=== PATIENT | female | born 1950 | race Caucasian/White ===

== ENCOUNTER 2016-11-25 18:25 | Emergency (ER) | payer MEDICARE, OTHER ==
[2016-11-25 18:36] VITALS: RESP 20
--- NOTE | 2016-11-25 19:00 | ED ---
Female Urogenital HPI - General Chief complaint: Vaginal Bleeding Stated complaint: vaginal bleeding Time Seen by Provider: 11/25/16 18:42 Source: patient, RN notes reviewed Mode of arrival: ambulatory Limitations: no limitations - History of Present Illness Initial comments: 66-year-old female presents emergency Department with chief complaint of vaginal bleeding. Patient states that she was admitted to the hospital on 11/11 for chest pain, vaginal bleeding. Patient was evaluated by Dr. Joseph OB/ RECREATIONAL THERAPY AIDE at that time. They felt that her bleeding was secondary to her use of Coumadin and a thickened endometrial lining. Patient states that she was placed on Provera 10 mg daily. She states that she is still taking the medication. Patient states that she has had no bleeding since the first of the year though she states she restarted approximately 2 hours ago. She states she has not gone through one pad yet. Patient denies any chest pain, headache, dizziness or lightheadedness. Dysuria hematuria. She states she does have some abdominal cramping. Patient states that her primary care physician did set up appointment with an REAL PROPERTY EVALUATOR and [facility]. - Related Data Home Medications Medication Instructions Recorded Confirmed Cholecalciferol [Vitamin D3] 2,000 unit PO QAM 09/11/15 11/25/16 Cyanocobalamin [Vitamin B-12] 3,000 mcg PO QAM 09/11/15 11/25/16 Digoxin [Lanoxin] 125 mcg PO QAM 09/11/15 11/25/16 Enalapril [Vasotec] 10 mg PO QAM 09/11/15 11/25/16 Loratadine [Claritin] 10 mg PO DAILY PRN 09/11/15 11/25/16 Simvastatin [Zocor] 20 mg PO HS 09/11/15 11/25/16 Warfarin [Coumadin] 5 mg PO HS 09/11/15 11/25/16 Albuterol Inhaler [Ventolin Hfa 2 puff INHALATION RT-Q4H PRN 11/11/16 11/25/16 Inhaler] Aspirin EC [Ecotrin Low Dose] 81 mg PO QAM 11/11/16 11/25/16 Hydrochlorothiazide 25 mg PO QAM 11/11/16 11/25/16 Lansoprazole [Prevacid] 30 mg PO QAM 11/11/16 11/25/16 Metoprolol Tartrate [Lopressor] 100 mg PO BID 11/11/16 11/25/16 Previous Rx's Medication Instructions Recorded Levofloxacin [Levaquin] 500 mg PO HS tab 11/12/16 medroxyPROGESTERone [Provera] 10 mg PO DAILY tab 11/12/16 Allergies Allergy/AdvReac Type Severity Reaction Status Date / Time latex Allergy Unknown Verified 11/25/16 18:40 shellfish derived [Shellfish] Allergy Unknown Verified 11/25/16 18:40 Review of Systems ROS Statement: Those systems with pertinent positive or pertinent negative responses have been documented in the HPI. ROS Other: All systems not noted in ROS Statement are negative. Past Medical History Past Medical History: Atrial Fibrillation, Coronary Artery Disease (CAD), GERD/ Reflux, Hyperlipidemia, Hypertension, Myocardial Infarction ([place]), Osteoarthritis (OA) Additional Past Medical History / Comment(s): gastric ulcers in past Last Myocardial Infarction Date:: 1998 History of Any Multi-Drug Resistant Organisms: None Reported Past Surgical History: Heart Catheterization With Stent Past Anesthesia/Blood Transfusion Reactions: No Reported Reaction Date of Last Stent Placement:: 1998 Past Psychological History: No Psychological Hx Reported Smoking Status: Never smoker Past Alcohol Use History: None Reported Past Drug Use History: None Reported - Past Family History Sister(s) Family Medical History: Cancer General Exam General appearance: alert, in no apparent distress Head exam: Present: atraumatic, normocephalic, normal inspection Respiratory exam: Present: normal lung sounds bilaterally. Absent: respiratory distress, wheezes, rales, rhonchi, stridor Cardiovascular Exam: Present: regular rate, normal rhythm, normal heart sounds. Absent: systolic murmur, diastolic murmur, rubs, gallop, clicks GI/Abdominal exam: Present: soft, normal bowel sounds. Absent: distended, tenderness, guarding, rebound, rigid Back exam: Absent: CVA tenderness (R), CVA tenderness (L) Neurological exam: Present: alert, oriented X3, CN II-XII intact Skin exam: Present: warm, dry, intact, normal color. Absent: rash Course Vital Signs 11/25/16 18:32 Temperature 98.5 F Pulse Rate 110 H Respiratory 20 Rate Blood Pressure 149/83 O2 Sat by Pulse 95 Oximetry Medical Decision Making - Medical Decision Making 66-year-old female presented for vaginal bleeding. Patient has had this in the past and has been evaluated by Dr. Joseph in the hospital. Patient is on Provera at this time. Patient's bleeding is very minimal. Patient will be continuing her medication and she'll be followed up with her REAL PROPERTY EVALUATOR at her scheduled appointment with Jonas Kenney. Patient was given return parameters. Patient agrees to plan. - Lab Data Result diagrams: 11/25/16 19:06 11/25/16 19:06 Lab Results 11/25/16 11/25/16 11/25/16 Range/Units 19:06 19:06 19:06 WBC 13.0 H (3.8-10.6) k/uL RBC 4.38 (3.80-5.40) m/uL Hgb 14.7 (11.4-16.0) gm/dL Hct 43.4 (34.0-46.0) % MCV 99.1 (80.0-100.0) fL MCH 33.5 (25.0-35.0) pg MCHC 33.8 (31.0-37.0) g/dL RDW 14.4 (11.5-15.5) % Plt Count 260 (150-450) k/uL Neutrophils % 76 % Lymphocytes % 13 % Monocytes % 7 % Eosinophils % 2 % Basophils % 1 % Neutrophils # 9.9 H (1.3-7.7) k/uL Lymphocytes # 1.6 (1.0-4.8) k/uL Monocytes # 0.9 (0-1.0) k/uL Eosinophils # 0.3 (0-0.7) k/uL Basophils # 0.1 (0-0.2) k/uL PT 18.7 H (9.0-12.0) sec INR 1.9 (<1.1) APTT 26.5 (22.0-30.0) sec Sodium 143 (137-145) mmol/L Potassium 3.9 (3.5-5.1) mmol/L Chloride 104 (98-107) mmol/L Carbon Dioxide 24 (22-30) mmol/L Anion Gap 15 mmol/L BUN 19 H (7-17) mg/dL Creatinine 0.91 (0.52-1.04) mg/dL Est GFR (MDRD) Af Amer >60 (>60 ml/min/1.73 sqM) Est GFR (MDRD) Non-Af >60 (>60 ml/min/1.73 sqM) Glucose 98 (74-99) mg/dL Calcium 10.5 H (8.4-10.2) mg/dL Total Bilirubin 0.6 (0.2-1.3) mg/dL AST 29 (14-36) U/L ALT 42 (9-52) U/L Alkaline Phosphatase 98 (38-126) U/L Total Protein 7.4 (6.3-8.2) g/dL Albumin 4.0 (3.5-5.0) g/dL Urine Color Urine Appearance (Clear) Urine pH (5.0-8.0) Ur Specific [place] (1.001-1.035) Urine Protein (Negative) Urine Glucose (UA) (Negative) Urine Ketones (Negative) Urine Blood (Negative) Urine Nitrate (Negative) Urine Bilirubin (Negative) Urine Urobilinogen (<2.0) mg/dL Ur Leukocyte Esterase (Negative) Urine RBC (0-5) /hpf Urine WBC (0-5) /hpf Ur Squamous Epith Cells (0-4) /hpf Urine Bacteria (None) /hpf Urine Yeast (Budding) (None) /hpf 11/25/16 Range/Units 19:06 WBC (3.8-10.6) k/uL RBC (3.80-5.40) m/uL Hgb (11.4-16.0) gm/dL Hct (34.0-46.0) % MCV (80.0-100.0) fL MCH (25.0-35.0) pg MCHC (31.0-37.0) g/dL RDW (11.5-15.5) % Plt Count (150-450) k/uL Neutrophils % % Lymphocytes % % Monocytes % % Eosinophils % % Basophils % % Neutrophils # (1.3-7.7) k/uL Lymphocytes # (1.0-4.8) k/uL Monocytes # (0-1.0) k/uL Eosinophils # (0-0.7) k/uL Basophils # (0-0.2) k/uL PT (9.0-12.0) sec INR (<1.1) APTT (22.0-30.0) sec Sodium (137-145) mmol/L Potassium (3.5-5.1) mmol/L Chloride (98-107) mmol/L Carbon Dioxide (22-30) mmol/L Anion Gap mmol/L BUN (7-17) mg/dL Creatinine (0.52-1.04) mg/dL Est GFR (MDRD) Af Amer (>60 ml/min/1.73 sqM) Est GFR (MDRD) Non-Af (>60 ml/min/1.73 sqM) Glucose (74-99) mg/dL Calcium (8.4-10.2) mg/dL Total Bilirubin (0.2-1.3) mg/dL AST (14-36) U/L ALT (9-52) U/L Alkaline Phosphatase (38-126) U/L Total Protein (6.3-8.2) g/dL Albumin (3.5-5.0) g/dL Urine Color Yellow Urine Appearance Clear (Clear) Urine pH 5.5 (5.0-8.0) Ur Specific [place] 1.004 (1.001-1.035) Urine Protein Trace H (Negative) Urine Glucose (UA) Negative (Negative) Urine Ketones Negative (Negative) Urine Blood Large H (Negative) Urine Nitrate Negative (Negative) Urine Bilirubin Negative (Negative) Urine Urobilinogen <2.0 (<2.0) mg/dL Ur Leukocyte Esterase Small H (Negative) Urine RBC 134 H (0-5) /hpf Urine WBC 12 H (0-5) /hpf Ur Squamous Epith Cells 1 (0-4) /hpf Urine Bacteria Occasional H (None) /hpf Urine Yeast (Budding) Rare H (None) /hpf Disposition Clinical Impression: Dysfunctional uterine bleeding Disposition: HOME SELF-CARE Condition: Stable Instructions: Dysfunctional Uterine Bleeding (ED) Additional Instructions: Follow-up with your REAL PROPERTY EVALUATOR as discussed.Please return to the Emergency Department if symptoms worsen or any other concerns. Time of Disposition: 20:22
[2016-11-25 19:26] LABS: Basophils # (A) 0.1 k/uL (0-0.2); Basophils % (A) 1 %; CH 35.1; CHCM 35.7; Eosinophils # (A) 0.3 k/uL (0-0.7); Eosinophils % (A) 2 %; HCT 43.4 % (34.0-46.0); HDW 3.11; HGB 14.7 gm/dL (11.4-16.0); Luc # (Auto) 0.29; Luc % (Auto) 2; Lymphocytes # (A) 1.6 k/uL (1.0-4.8); Lymphocytes % (A) 13 %; MCH 33.5 pg (25.0-35.0); MCHC 33.8 g/dL (31.0-37.0); MCV 99.1 fL (80.0-100.0); Mean Platelet Volume 8.8; Monocytes # (A) 0.9 k/uL (0-1.0); Monocytes % (A) 7 %; Neutrophils # (A) 9.9 k/uL (1.3-7.7); Neutrophils % (A) 76 %; RBC 4.38 m/uL (3.80-5.40); RDW 14.4 % (11.5-15.5); WBC (Perox) 12.55
[2016-11-25 19:32] LABS: ALT 42 U/L (9-52); AST 29 U/L (14-36); Alkaline Phosphatase 98 U/L (38-126); Anion Gap 15 mmol/L; Blood Urea Nitrogen 19 mg/dL (7-17); Calcium 10.5 mg/dL (8.4-10.2); Carbon Dioxide 24 mmol/L (22-30); Chloride 104 mmol/L (98-107); Glucose 98 mg/dL (74-99); Non-African American GFR(MDRD) >60 (>60 ml/min/1.73 sqM); Potassium 3.9 mmol/L (3.5-5.1); Sodium 143 mmol/L (137-145); Total Bilirubin 0.6 mg/dL (0.2-1.3); Total Protein 7.4 g/dL (6.3-8.2)
[2016-11-25 19:35] LABS: INR 1.9 (<1.1); Partial Thromboplastin Time 26.5 sec (22.0-30.0); Prothrombin Time 18.7 sec (9.0-12.0)
[2016-11-25 19:39] LABS: Appearance,Urine Clear (Clear); Bacteria,Urine Occasional /hpf; Bilirubin,Urine Negative (Negative); Glucose,Urine (UA) Negative (Negative); Ketones,Urine Negative (Negative); Leukocyte Esterase,Urine Small (Negative); Nitrite,Urine Negative (Negative); PH, Urine 5.5 (5.0-8.0); Particle Count 4584; Protein,Urine Trace (Negative); RBC,Urine 134 /hpf (0-5); Specific Gravity,Urine 1.004 (1.001-1.035); Squamous Epithelial Cell,Urine 1 /hpf (0-4); UA Billing (MACRO vs. MICRO) MICRO; Urobilinogen,Urine <2.0 mg/dL (<2.0); WBC,Urine 12 /hpf (0-5)
[2016-11-25 20:35] VITALS: BP 150/60; PULSE 76; TEMP 97
== END 2016-11-25 20:35 | disposition home or self-care (01) ==
LOC: EC 18:25
DX: N93.8 Other specified abnormal uterine and vaginal bleeding (principal); I48.91 Unspecified atrial fibrillation; K21.9 Gastro-esophageal reflux disease without esophagitis; I10 Essential (primary) hypertension; M19.90 Unspecified osteoarthritis, unspecified site; E78.5 Hyperlipidemia, unspecified; I25.2 Old myocardial infarction; Z95.5 Presence of coronary angioplasty implant and graft; Z79.890 Hormone replacement therapy; Z79.899 Other long term (current) drug therapy; Z79.01 Long term (current) use of anticoagulants; Z79.82 Long term (current) use of aspirin; Z91.040 Latex allergy status
CPT/HCPCS: 36415; 80053; 81001; 85025; 85610; 85730; 87086; 99284

== ENCOUNTER → 2017-01-10 | Outpatient (CLI) | payer MEDICARE, OTHER ==
[2017-01-10 14:48] LABS: Calcium 9.3 mg/dL (8.4-10.2); Potassium 4.3 mmol/L (3.5-5.1); Total Bilirubin 0.8 mg/dL (0.2-1.3); Total Protein 7.2 g/dL (6.3-8.2)
== END | disposition home or self-care (01) ==
LOC: LABWHC1 14:13
PROVIDERS: ATTEND Family Medicine
DX: I10 Essential (primary) hypertension (principal)
CPT/HCPCS: 36415; 80053

== ENCOUNTER 2022-03-16 10:27 | Day surgery (SDC) | payer MEDICARE ==
[2022-03-14 16:11] VITALS: BMI 56.5
[~2022-03-16 10:27] MED LIST: ALPRAZolam 0.25 MG TAB PO PRN; ALPRAZolam 0.5 MG TAB PO PRN; ASPIRIN 325 MG TAB PO STA; NITROGLYCERIN SL TABS 0.4 MG TAB SUBLINGUAL PRN; SODIUM CHLORIDE 0.9% 1,000 ML in EMPTY BAG 1 BAG IV SCH
[2022-03-16 10:58] VITALS: TEMP 97.9
[2022-03-16 11:02] LABS: Anisocytosis Slight; Basophils # (A) 0.1 k/uL (0-0.2); Basophils % (A) 1 %; Eosinophils # (A) 0.3 k/uL (0-0.7); Eosinophils % (A) 4 %; HCT 40.2 % (34.0-46.0); HGB 12.9 gm/dL (11.4-16.0); Hypochromasia Slight; Lymphocytes # (A) 1.1 k/uL (1.0-4.8); Lymphocytes % (A) 14 %; MCH 34.4 pg (25.0-35.0); MCHC 32.2 g/dL (31.0-37.0); MCV 106.9 fL (80.0-100.0); Macrocytosis Marked; Mean Platelet Volume 8.2; Monocytes # (A) 0.5 k/uL (0-1.0); Monocytes % (A) 6 %; Neutrophils # (A) 5.8 k/uL (1.3-7.7); Neutrophils % (A) 74 %; Platelet Count 280 k/uL (150-450); RBC 3.76 m/uL (3.80-5.40); RDW 16.4 % (11.5-15.5); WBC 7.8 k/uL (3.8-10.6)
[2022-03-16 11:08] LABS: INR 2.6 (<1.2)
[2022-03-16] MEDS ORDERED: fentaNYL (PF) 50 MCG/ML 2 ML AMP ONE (11:19)
[2022-03-16] MEDS ORDERED: IV FLUID CONTINUATION 1,000 ML IV ONE (11:20)
[2022-03-16] MEDS ORDERED: MIDAZOLAM 2 MG/2 ML VIAL IV ONE (11:50)
[2022-03-16] MEDS ORDERED: fentaNYL (PF) 50 MCG/ML 2 ML AMP IV ONE (11:50)
[2022-03-16] MEDS ORDERED: BENZOCAINE SPRAY 1 CAN MUCOUS MEM ONE (11:50)
[2022-03-16 12:00] VITALS: RESP 16
[2022-03-16] MEDS ORDERED: ALBUTEROL INHALATION PRN (12:07)
--- NOTE | 2022-03-16 12:12 | P.PCN ---
Date of Procedure: 03/16/22 Description of Procedure: Indication: Evaluation of aortic valve Procedure Description: After explaining the procedure to the patient, it's risk and complications, blood pressure, heart rate and O2 saturation were monitored. The throat was sprayed with Cetacaine. Patient received 3 mg intravenous Versed, 50 mcg intravenous fentanyl. The probe was introduced into the esophagus without difficulty. Images were obtained. Following that, the probe was removed. There was no immediate complication. Findings: Left atrial size is mildly dilated, left atrial appendage is normal. Left ventricle size and systolic function are normal. The mitral valve revealed mild fibrocalcific changes, tricuspid valve is normal. The aortic valve is a tricuspid valve with severe calcifications with reduced opening, aortic valve by planimetry is 0.8 cm. Ascending thoracic aorta revealed mild atherosclerotic changes. No pericardial effusion was noted. Contrast bubble study revealed no evidence of shunting across the intra-atrial septum was Valsalva maneuver. Doppler: Pulse wave and color Doppler were obtained and revealed moderate aortic regurgitation with [id number] mitral and tricuspid regurgitation, the estimated right ventricle systolic pressure was 45 mmHg. The peak gradient across the aortic valve was 62 mercury with a mean of 44 mmHg consistent with severe aortic stenosis. There was no shunting across the intra-atrial septum. Conclusion: 1. Mildly dilated left atrium 2. Normal left ventricle size and systolic function 3. Severe aortic stenosis with moderate aortic regurgitation 4. Mild to moderate mitral and tricuspid regurgitation with mild pulmonary hypertension 5. No evidence of shunting across the intra-atrial septum.
[2022-03-16] MEDS ORDERED: SODIUM CHLORIDE 0.9% 1,000 ML IV SCH (12:15)
[2022-03-16 13:46] VITALS: BP 112/61; PULSE 78
[2022-03-16] MEDS ORDERED: NON FORMULARY DRUG (Metoprolol Tartrate [Lopressor] 100 MG Tablet) PO SCH (21:00)
[2022-03-16] MEDS ORDERED: ATORVASTATIN 20 MG TAB PO SCH (21:00)
[2022-03-17] MEDS ORDERED: NON FORMULARY DRUG (Aspirin Ec 81 MG Tablet.Dr) PO SCH (09:00)
[2022-03-17] MEDS ORDERED: hydroCHLOROthiazide 25 MG TAB PO SCH (09:00)
[2022-03-17] MEDS ORDERED: NON FORMULARY DRUG (Enalapril 10 MG Tab) PO SCH (09:00)
== END 2022-03-16 13:40 | disposition home or self-care (01) ==
LOC: CATHCVL 10:27
PROVIDERS: ATTEND Internal Medicine Interventional Cardiology
DX: I08.3 Combined rheumatic disorders of mitral, aortic and tricuspid valves (principal); I48.21 Permanent atrial fibrillation; I25.10 Atherosclerotic heart disease of native coronary artery without angina pectoris; I10 Essential (primary) hypertension; E78.2 Mixed hyperlipidemia; Z20.822 Contact with and (suspected) exposure to COVID-19; Z95.5 Presence of coronary angioplasty implant and graft; Z87.891 Personal history of nicotine dependence; Z79.82 Long term (current) use of aspirin; Z79.899 Other long term (current) drug therapy; Z79.01 Long term (current) use of anticoagulants; Z91.040 Latex allergy status
CPT/HCPCS: 93312; 93320; 93325; 85025; 85610; 87635; J2250; J3010

== ENCOUNTER → 2022-04-07 | Outpatient (CLI) | payer MEDICARE ==
--- NOTE | 2022-04-07 15:38 | CT ---
EXAMINATION TYPE: CT TAVR Planning DATE OF EXAM: 04/07/2022 HISTORY: TAVR planning CT DLP: 3210.6 mGycm Automated Exposure Control for Dose Reduction was Utilized. CONTRAST: CT scan of the chest, abdomen and pelvis is performed with IV Contrast, patient injected with 125cc m L of Isovue 370. COMPARISON: CT dated 01/30/2013 TECHNIQUE: Helical imaging obtained through the chest, abdomen and pelvis during arterial phase elicia vipin administration of radiographic contrast intravenously. MIP images were generated on an [employer] workstation and reviewed. FINDINGS: See report from [employer] regarding preprocedural planning CHEST: Lower Neck and Thyroid: Dense atherosclerotic calcification at the common carotid artery bifurcations , suboptimally assessed. Lungs: Scattered linear pulmonary atelectasis. Central Airway: No significant findings Pleura: No significant findings Pulmonary Arteries: Dilated pulmonary trunk measuring 3.8 cm suggestive of pulmonary hypertension. Heart and Pericardium: Coronary arterial atherosclerotic calcification. No pleural effusion. No gross cardiomegaly. Lymph Nodes: 13 mm subcarinal lymph node, appreciated previously. Other scattered prominent mediastin al and hilar lymph nodes, stable compared to 2013 CT scan. Mediastinum & Esophagus: No significant findings ABDOMEN/PELVIS: Please note arterial phase of the imaging limits detailed evaluation of the solid abdominal organs. Liver: No significant findings Spleen: No significant findings Kidneys: Multiple variable sized bilateral renal hypodensities, likely representing renal cysts. Adrenal Glands: No significant findings Pancreas: Slightly atrophic. Gallbladder: No significant findings Bowel and Mesentery: Scattered uncomplicated colonic diverticulosis. Slightly thickened right hemicol on, nonspecific. Lymph Nodes: No pathologically enlarged abdominal or pelvic lymph nodes. Urinary Bladder: Not completely distended with slightly thickened wall. Pelvic Organs: Suboptimally assessed. No gross uterine or adnexal mass. Other: Extensive arterial atherosclerotic calcification. Bovine aortic arch. The ascending aorta lesly ures 4.1 cm. Aortic valve calcification. No sizable ascites. Degenerative changes of the cervical spi ne and lower lumbar spine. Other Lines/Tubes/Devices/Hardware: None IMPRESSION: Presurgical CT scan demonstrating findings as described above.
[2022-04-07 17:02] LABS: Anisocytosis Slight; Basophils % (A) 0 %; Eosinophils # (A) 0.2 k/uL (0-0.7); Eosinophils % (A) 2 %; HCT 37.9 % (34.0-46.0); HGB 12.3 gm/dL (11.4-16.0); Hypochromasia Slight; Lymphocytes # (A) 1.2 k/uL (1.0-4.8); Lymphocytes % (A) 12 %; MCH 34.7 pg (25.0-35.0); MCHC 32.5 g/dL (31.0-37.0); MCV 106.8 fL (80.0-100.0); Macrocytosis Marked; Mean Platelet Volume 10.2; Monocytes # (A) 0.6 k/uL (0-1.0); Monocytes % (A) 6 %; Neutrophils # (A) 7.5 k/uL (1.3-7.7); Neutrophils % (A) 78 %; Platelet Count 237 k/uL (150-450); RBC 3.55 m/uL (3.80-5.40); RDW 16.9 % (11.5-15.5); WBC 9.7 k/uL (3.8-10.6)
[2022-04-07 17:16] LABS: ALT 18 U/L (4-34); AST 23 U/L (14-36); African American GFR (CKD) 51 (>60 ml/min/1.73 sqM); Albumin 3.6 g/dL (3.5-5.0); Alkaline Phosphatase 65 U/L (38-126); Anion Gap 10 mmol/L; Blood Urea Nitrogen 24 mg/dL (7-17); Calcium 8.8 mg/dL (8.4-10.2); Carbon Dioxide 24 mmol/L (22-30); Chloride 105 mmol/L (98-107); Globulin 3.5 g/dL; Glucose 87 mg/dL (74-99); Non-African American GFR(CKD) 44 (>60 ml/min/1.73 sqM); Potassium 4.4 mmol/L (3.5-5.1); Sodium 139 mmol/L (137-145); Total Bilirubin 0.6 mg/dL (0.2-1.3); Total Protein 7.1 g/dL (6.3-8.2)
--- NOTE | 2022-04-07 19:06 | US ---
EXAMINATION TYPE: US carotid duplex BILAT DATE OF EXAM: 04/07/2022 COMPARISON: Ultrasound carotid duplex January 19, 2011 CLINICAL HISTORY: stenosis. EXAM MEASUREMENTS: RIGHT: Peak Systolic Velocity (PSV) cm/sec ----- Right CCA: 67.3 ----- Right ICA: 94.0 ----- Right ECA: 98.7 ICA/CCA ratio: 1.4 RIGHT: End Diastole cm/sec ----- Right CCA: 14.4 ----- Right ICA: 35.5 ----- Right ECA: 0.0 LEFT: Peak Systolic Velocity (PSV) cm/sec ----- Left CCA: 43.6 ----- Left ICA: 91.8 ----- Left ECA: 185. ICA/CCA ratio: 2.65 LEFT: End Diastole cm/sec ----- Left CCA: 7.2 ----- Left ICA: 20.5 ----- Left ECA: 30.4 VERTEBRALS (direction of flow): Right Vertebral: not visualized Left Vertebral: Antegrade Rhythm: Arrhythmia Moderate to severe atherosclerotic changes greater in the left. IMPRESSION: [id number] atherosclerotic changes bilaterally. Stenosis approaching under 50% i n the proximal left internal carotid artery is felt present. Arrhythmia noted during real-time scan josé. Correlate clinically. Criteria for Assigning % of Stenosis / Diameter reduction (Estimation based on the indirect measurements of the internal carotid artery velocities (ICA PSV). 1. Normal (no stenosis)=ICA PSV < 125 cm/s: ratio < 2.0: ICA EDV<40 cm/s. 2. Less than 50% stenosis=ICA PSV < 125 cm/s: ratio < 2.0: ICA EDV<40 cm/s. 3. 50 to 69% stenosis=ICA PSV of 125 to 230 cm/s: ration 2.0 ? 4.0: ICA EDV 40-100 cm/s. 4. Greater than 70% stenosis to near occlusion= ICA PSV > 230 cm/s: ratio > 4.0: ICA EDV > 100 cm/s. 5. Near occlusion= ICA PSV velocities may be low or undetectable: variable ratio and ICA EDV. 6. Total occlusion=unable to detect flow.
[2022-04-07 23:30] LABS: Hepatitis A Antibody IgM Nonreactive (Nonreactive); Hepatitis B Core IgM Nonreactive (Nonreactive); Hepatitis B Surface Antigen Nonreactive (Nonreactive); Hepatitis C IgG Antibody Nonreactive (Nonreactive)
== END | disposition home or self-care (01) ==
LOC: LABWHC1 06:50
PROVIDERS: ATTEND Thoracic Surgery (Cardiothoracic Vascular Surgery)
DX: I35.0 Nonrheumatic aortic (valve) stenosis (principal); R55 Syncope and collapse; R94.4 Abnormal results of kidney function studies
CPT/HCPCS: 94150; 86900; 86901; 83880; 80053; 80074; 82565; 84443; 84520; 85025; 86850; 83036; 93880; 71275; 74174; 36415; Q9967

== ENCOUNTER → 2022-05-13 | Outpatient (CLI) | payer MEDICARE | END | disposition home or self-care (01) | LOC: LABPAT 12:09 | PROVIDERS: ATTEND Thoracic Surgery (Cardiothoracic Vascular Surgery) | DX: I35.0 Nonrheumatic aortic (valve) stenosis (principal); Z01.818 Encounter for other preprocedural examination ==

== ENCOUNTER → 2022-06-06 | Outpatient (CLI) | payer MEDICARE ==
[2022-06-06 14:36] LABS: HGB 12.4 g/dL (12.0-15.0); MCHC 30.2 g/dL (32.0-37.0); Mean Platelet Volume 11.3 fL (9.5-12.2); NRBC Per 100 WBC 0 /100 WBCS (0.0-0.0); Platelet Count 250 X 10*3/uL (140-440); RBC 3.76 X 10*6/uL (4.10-5.20); RDW 17.2 % (11.5-14.5); WBC 8.72 X 10*3/uL (4.50-10.00)
[2022-06-06 14:46] LABS: African American GFR (CKD) 58.5 (60.0-200.0); Anion Gap 14.6 mmol/L (10.00-18.00); Carbon Dioxide 24.4 mmol/L (20.0-27.5); Non-African American GFR(CKD) 50.5 (60.0-200.0)
== END | disposition home or self-care (01) ==
LOC: LABPAT 09:42
PROVIDERS: ATTEND Thoracic Surgery (Cardiothoracic Vascular Surgery)
DX: I35.0 Nonrheumatic aortic (valve) stenosis (principal)
CPT/HCPCS: 80048; 85027

== ENCOUNTER 2022-06-08 08:09 | Inpatient (IN) | payer MEDICARE ==
[~2022-06-08 08:09] MED LIST changes: -ALPRAZolam 0.25 MG TAB PO PRN; -ALPRAZolam 0.5 MG TAB PO PRN; +ASPIRIN 325 MG TAB PO ONE; -ASPIRIN 325 MG TAB PO STA; +ATORVASTATIN 10 MG TAB PO ONE; +CLEVIDIPINE BUTYRATE 25 MG in EMPTY BAG 1 BAG IV PRN; +CLOPIDOGREL 75 MG TAB PO ONE; +DEXAMETHASONE SOD PHOSPHATE 4 MG/ML 1 ML VIAL IV ONE; +ELECTROLYTE-A SOLUTION 1,000 ML with POTASSIUM CHLORIDE 100 MEQ, MAGNESIUM SULFATE 16 M... IV PRN; +HYDROmorphone 0.5 MG/0.5 ML SYRINGE IVP PRN; +INSULIN REGULAR 100 UNIT in SODIUM CHLORIDE 0.9% 100 ML IV PRN; +LACTATED RINGERS 1,000 ML IV SCH; +LIDOCAINE 1% (10MG/ML) FOR IV START INTRADERMA PRN; +METOPROLOL TARTRATE 25 MG TAB PO ONE; -NITROGLYCERIN SL TABS 0.4 MG TAB SUBLINGUAL PRN; +NITROGLYCERIN-D5W PMX 25 MG/250 ML BTL IV PRN; +ONDANSETRON 4 MG/2 ML VIAL IVP ONE; +ONDANSETRON 4 MG/2 ML VIAL IVP PRN; +PROTAMINE SULFATE 250 MG in EMPTY BAG 1 BAG IV PRN; -SODIUM CHLORIDE 0.9% 1,000 ML in EMPTY BAG 1 BAG IV SCH; +SODIUM CHLORIDE 0.9% 500 ML 500 ML INTRAARTER PRN; +TRANEXAMIC ACID 2,000 MG in SODIUM CHLORIDE 0.9% 80 ML IV PRN; +ceFAZolin 3 GM in SODIUM CHLORIDE 0.9% 100 ML IVPB ONE
[2022-06-08 08:44] LABS: Glucose,Whole Blood 87 mg/dL (70-110)
[2022-06-08 09:11] LABS: INR 1.3 (<1.2); Prothrombin Time 13.4 sec (9.0-12.0)
--- NOTE | 2022-06-08 09:50 | P.ANPRN ---
Procedure Note - Anesthesia - Invasive Line Left Arterial Line Time Out Performed: Yes Date of Procedure: 06/08/22 Time of Procedure: 09:30 Location of Patient: PreOp Preparation: Sterile Prep Arterial Line Location: Radial Ultrasound Used: Yes Purpose - Visualization and Identification of Vasculature: Yes Needle Guage: 20 Image Stored and Saved: Yes Narrative: Left radial arterial line placed by BATTERY INSTALLER
[2022-06-08] MEDS ORDERED: ONDANSETRON 4 MG/2 ML VIAL ONE (10:01)
[2022-06-08] MEDS ORDERED: HEPARIN SODIUM,PORCINE 10,000 UNIT/ML 1 ML VIAL ONE (10:01)
[2022-06-08] MEDS ORDERED: DEXAMETHASONE SOD PHOSPHATE 4 MG/ML 1 ML VIAL ONE (10:01)
[2022-06-08] MEDS ORDERED: LIDOCAINE 2% INJ 20 MG/ML (2 ML VIAL) ONE (10:01)
[2022-06-08] MEDS ORDERED: GLYCOPYRROLATE 0.2 MG/ML 2 ML VIAL ONE (10:01)
[2022-06-08] MEDS ORDERED: PROPOFOL 10 MG/ML 20 ML VIAL IV ONE (10:01)
[2022-06-08] MEDS ORDERED: PROTAMINE SULFATE 10 MG/ML 5 ML VIAL IV ONE (10:01)
[2022-06-08] MEDS ORDERED: NEOSTIGMINE 1 MG/ML 10 ML VIAL ONE (10:01)
[2022-06-08] MEDS ORDERED: ROCURONIUM 10 MG/ML (5 ML VIAL) IV ONE (10:01)
[2022-06-08] MEDS ORDERED: fentaNYL (PF) 50 MCG/ML 2 ML AMP ONE (10:01)
[2022-06-08] MEDS ORDERED: PHENYLEPHRINE-0.9% NACL SYG 1,000 MCG/10 ML SYRINGE ONE (10:01)
[2022-06-08] MEDS ORDERED: SUCCINYLCHOLINE CHLORIDE 200 MG/10 ML VIAL IV ONE (10:01)
[2022-06-08] MEDS ORDERED: IOPAMIDOL-370 100ML BTL INJ ONE (11:40)
--- NOTE | 2022-06-08 12:34 | P.ANPRN ---
Procedure Note - Anesthesia - GONZALEZ Intraop Pre Bypass GONZALEZ Intraop - Anesthesia Indication: , AI, MR Date of Procedure: 06/08/22 Pre-operative Diagnosis: Aortic stenosis Post-operative Diagnosis: same Surgeon: Fidel Ferguson Left Ventricle: EF 50% Ejection Fraction: Normal Regional Wall Motion Abnormalities: None Left Ventricle Hypertrophy: Yes Right Ventricle: Dilated pulmonary artery R. Ventricle Function: Normal Anatomy: Trileaflet Aortic Stenosis: Severe Aortic Regurgitation: Mild Other Findings: Peak 67, Mean 43 mmH2O Mitral Stenosis: None Mitral Regurgitation: Mild Tricuspid Stenosis: None Tricuspid Regurgitation: Mild Pulmonic Stenosis: None Pulmonic Regurgitation: None R. Atrial Dilation: Yes R. Atrial PFO: No Left Atrium: Extensive smoke in left atrium. No visible clot L. Atrial Dilation: Yes Aortic Dissection: No Aortic Calcification: Mild Plural Effusion: None - GONZALEZ Intraop Post Bypass GONZALEZ Intraop Post Bypass Procedure Performed: TAVR Left Ventricle: EF 50% Ejection Fraction: Normal Regional Wall Motion Abnormalities: None R. Ventricle Function: Normal Aortic Valve: s/p TAVR - Peak 22 / Mean 14 mm H2O Mitral Valve: Unchanged Tricuspid: Unchanged Pulmonic: Unchanged Aortic Dissection: No
--- NOTE | 2022-06-08 12:50 | P.OP ---
Date of Procedure: 06/08/22 Preoperative Diagnosis: Calcific aortic stenosis Postoperative Diagnosis: Same Procedure(s) Performed: Trans-cutaneous transfemoral aortic valve replacement with 23 mm Maximiliano 2 aortic valve prosthesis Implants: 23 mm Maximiliano 2 aortic valve prosthesis Anesthesia: GETA Surgeon: Fidel Ferguson (Cardiovascular surgeon) Electrical Appliance Preparer #1: Bryce Worthington (First insurance associate) Electrical Appliance Preparer #2: Jian Greene (Second insurance associate) Estimated Blood Loss (ml): 50 Pathology: none sent Condition: stable Disposition: ICU Indications for Procedure: 71-year-old morbidly obese female with symptomatic significant aortic stenosis as well as aortic valvular insufficiency. She has a tricuspid valve. She was evaluated in the heart clinic with shared decision-making and was felt to represent significant risk for surgical aortic valve replacement. Transcatheter aortic valve replacement appeared her best option. She was scheduled electively after appropriate workup and preparation. Operative Findings: There was a moderate gradient measured across the aortic valve. There was significant aortic insufficiency. Implant was performed at good level. There was no paravalvular leak. There was no significant gradient. Excellent hemostasis was obtained at the groin level. Description of Procedure: Patient was brought to the cardiac catheterization laboratory and placed on the table. Gen. anesthesia was induced. Anterior torso and bilateral groins were sterilely prepped and draped. After appropriate timeout, right subclavian vein was punctured with an 18-gauge needle. Guidewire and introducer were placed and through the introducer sheath a screw-in ventricular lead was placed in the apex of the right ventricle. This was secured to the skin with suture ligatures after assuring good capture thresholds. Bilateral femoral access was obtained by Dr. Worthington. On the left a 6-Citizen [place] long sheath was placed and a pigtail catheter placed through this into the right coronary cusp. On the right 7- Citizen [place] sheath was placed and then 2 Perclose devices were deployed. A 9-Citizen [place] sheath was placed. Patient was systemically heparinized and the 9-[place]izen [place] sheath changed to a 14 Min sheath over a stiff wire. Through the right groin sheath the aortic valve was crossed and a pigtail catheter positioned in the apex of the left ventricle. Transvalvular gradients were measured. Safari wire was placed into the apex of the ventricle and a 23 Min Maximiliano 2 valve delivery system was brought up onto the field. It was advanced through the Min sheath into the descending thoracic aorta. The valve valve balloon was pulled back into the valve. The device was curved around the aortic arch and then across the aortic valve. The pusher was pulled back. The valve was appropriately positioned under fluoroscopy and deployed under rapid ventricular pacing. Excellent deployment level was obtained. The valve delivery system was withdrawn and GONZALEZ demonstrated no evidence of transvalvular leak. Heparin was reversed with protamine. The delivery system was removed and good femoral hemostasis was obtained by the cardiology team. Patient was transferred to the ICU in stable condition after extubation.
[2022-06-08] MEDS ORDERED: SODIUM CHLORIDE 0.9% 1,000 ML IV ONE (13:05)
[2022-06-08] MEDS ORDERED: LACTATED RINGERS 1,000 ML IV ONE (13:06)
--- NOTE | 2022-06-08 13:16 | P.PCN ---
Description of Procedure: Transcatheter Aoritc Valve Replacement Operative report PROCEDURE PERFORMED: 1. Percutaneous Aortic Valve Implantation using a 23 mm Maximiliano S3. 2. Transesophageal echocardiography (performed by anesthesia) 3. Ultrasound guided access and repair of right femoral artery access site by Perclose closure device and balloon tamponade. 4. Placement of temporary pacemaker wire. 5. Aortic root angiography INDICATIONS: 1. 71 year-old with a history of severe symptomatic aortic valve stenosis. PERFORMING PHYSICIANS: 1. Bryce Worthington DO Interventional Cardiology 2. Jian Greene MD Interventional Cardiology. 3. Fidel Ferguson MD, Cardiothoracic Surgeon. 4. Siva Rasheed MD Proctoring Interventional cardiology SEDATION: General anesthesia provided by anesthesia, see separate note APPROACH: Right femoral artery via percutaneous approach PROCEDURE DESCRIPTION: The patient was discussed at valve clinic with multidisciplinary approach with cardiothoracic surgeon as well as polisher hand and thought better treated with TAVR. Risks, benefits, and alternatives of the procedure had been explained to the patient who understood the risks and agreed to proceed. After consents were obtained, patient was brought to the transcatheter aortic valve implantation room in the cardiac pathology lab technician and general anesthesia was provided by the a nesthesiologist (see separate report). Once full body sterile prep was performed, right subclavian venous access was obtained and a temporary pacemaker was screwed in, performed by cardiothoracic surgery. Pacing threshholds were checked and deemed appropriate. Next the left femoral artery was accessed using a modified Seldinger technique, ultrasound guidance and micropuncture technique. A 6 Japanese Rabi sheath was placed in the left femoral artery. Next, a 6-Japanese pigtail catheter was advanced into the aorta and positioned in the aortic root, aortic root angiography was performed to determine optimal deployment angle. The right femoral artery was accessed using modified Seldinger technique, micropuncture technique and under direct ultrasound guidance. Femoral angiogram was done showing access in the common femoral artery and a 6Fr sheath was placed. Next preclose technique was performed using 2 preclose Percloses. Next a 0.035 Safari wire was placed in the Aorta via a pigtail catheter. Over that the arteriotomy was serially dilated and a 14 Fr Min sheath was placed. Next a 6F- AL1 catheter was advanced over a wire to the aortic root. A straight wire was advanced through the catheter and used to cross the severely stenotic valve. The AL1 was then exchanged for a 6Fr pigtail catheter and pressure measurements were obtained. The 0.035 Lunderquist wire was then positioned in the apex. Next a 23 mm Maximiliano S3 was advanced. The valve was then positioned across the aortic valve and confirmed with aortic root angiography. The valve was then deployed in proper position using slow deployment and with rapid pacing in conjuncture with aortic root angiography. The delivery system was withdrawn back into the arch and an aortic root injection in conjunction with GONZALEZ de monstrated a satisfactory result. There was no para valvular leak. There was no evidence of any other significant abnormalities. The preclose Perclose was then deployed in the right femoral artery. As expected there was still some oozing and therefore balloon tamponade was performed with a 8.0 x 60mm balloon. Hemostasis was achieved. Angiogram through the balloon showed no extravasation. The left femoral angiogram demonstrated an arteriotomy in the common femoral artery and this was repaired using a 6F angioseal device with complete hemostasis. The temporary venous pacemaker was sutured in place. The patient was then transported to the ICU in hemodynamically stable condition, requiring no pressor support. COMPLICATIONS: None CONCLUSION: 1. Implantaion of 23mm Maximiliano S3 transcatheter aortic valve via right femoral approach under GONZALEZ and fluoro guidance with no betty-valvular aortic regurgitation. 2. Placement of temporary pacemaker wire 3. Aortic Root Aortogram. RECOMMENDATIONS: The patient will be monitored in the ICU for hemodynamic and electrical stability. Patient will be on Coumadin and Plavix.
[2022-06-08 13:29] LABS: Glucose,Whole Blood 89 mg/dL (70-110)
[2022-06-08] MEDS ORDERED: CALCIUM GLUCONATE IN NACL 2 GM in SALINE 1 100ML.BAG IVPB PRN (13:29)
[2022-06-08] MEDS ORDERED: ONDANSETRON 4 MG/2 ML VIAL IVP PRN (13:29)
[2022-06-08] MEDS ORDERED: IPRATROPIUM-ALBUTEROL 3 ML NEB INHALATION PRN (13:29)
[2022-06-08] MEDS ORDERED: SODIUM CHLORIDE 0.9% 1,000 ML IV SCH (13:29)
[2022-06-08] MEDS ORDERED: Potassium Replacement Protocol 1 EACH MISC MISCELLANE PRN (13:29)
[2022-06-08] MEDS ORDERED: ACETAMINOPHEN TAB 325 MG TAB PO PRN (13:29)
[2022-06-08] MEDS ORDERED: Magnesium Replacement Protocol 1 EACH MISC MISCELLANE PRN (13:29)
[2022-06-08 14:03] LABS: INR 1.3 (<1.2); Partial Thromboplastin Time 24.6 sec (22.0-30.0); Prothrombin Time 13.4 sec (9.0-12.0)
[2022-06-08 14:11] LABS: Anisocytosis Slight; Basophils % (A) 0 %; Eosinophils # (A) 0.1 k/uL (0-0.7); Eosinophils % (A) 1 %; HCT 35.8 % (34.0-46.0); HGB 11.6 gm/dL (11.4-16.0); Hypochromasia Slight; Lymphocytes # (A) 0.6 k/uL (1.0-4.8); Lymphocytes % (A) 7 %; MCH 35.3 pg (25.0-35.0); MCHC 32.5 g/dL (31.0-37.0); MCV 108.5 fL (80.0-100.0); Macrocytosis Marked; Monocytes # (A) 0.2 k/uL (0-1.0); Monocytes % (A) 3 %; Neutrophils # (A) 7.4 k/uL (1.3-7.7); Neutrophils % (A) 88 %; Platelet Count 221 k/uL (150-450); RDW 17.2 % (11.5-15.5); WBC 8.4 k/uL (3.8-10.6)
[2022-06-08 14:27] LABS: Ionized Calcium 5.1 mg/dL (4.5-5.3)
[2022-06-08 14:33] LABS: Albumin 3.4 g/dL (3.5-5.0); Calcium 8.6 mg/dL (8.4-10.2); Magnesium 1.8 mg/dL (1.6-2.3); Potassium 4.3 mmol/L (3.5-5.1); Total Bilirubin 0.7 mg/dL (0.2-1.3); Total Protein 6.8 g/dL (6.3-8.2)
--- NOTE | 2022-06-08 16:13 | XR ---
EXAMINATION TYPE: XR chest 1V portable DATE OF EXAM: 06/08/2022 COMPARISON: 11/11/2016 HISTORY: Postop TECHNIQUE: Single frontal view of the chest is obtained. FINDINGS: There is no focal air space opacity, pleural effusion, or pneumothorax seen. The cardiac silhouette size is within normal limits. The osseous structures are intact. Linear band of density in the left upper lobe stable from prior exam likely related to chronic scar or atelectasis. Heart en larged. Coarsened interstitium. Underlying COPD suspected. Left suprahilar nodular area of density. IMPRESSION: 1. COPD with the chronic interstitial lung disease suspected. Nodular density in the left suprahilar region recommend short-term follow-up CT chest to exclude pulmonary mass.
--- NOTE | 2022-06-08 16:21 | P.CNPUL ---
History of Present Illness Consult date: 06/08/22 Requesting physician: Fidel Ferguson Chief complaint: Severe aortic valve stenosis, status post TAVR History of present illness: 71-year-old female patient with symptomatic significant aortic valve stenosis as well as aortic valvular insufficiency was evaluated in the heart valve clinic. Patient sees Dr. flores on [facility], and her PCP is Dr. Franks. She has history of morbid obesity, severe osteoarthritis of her back and knees, history of coronary artery disease, atrial fibrillation, hypertens ion, hyperlipidemia, previous myocardial infarction in 1999 with stenting of the right coronary artery. Patient has been having symptoms of fatigue. Cardiac catheterization showed no significant coronary artery disease, and echocardiographically shows severe aortic valvular stenosis. Patient was felt to represent significant risk for surgical aortic valve replacement, and she was offered transcatheter aortic valve replacement which she underwent today on 06/08/2022. She was seen in the postoperative period in the ICU, resting comfortably in bed, breathing comfortably, hemodynamically patient is stable, she is on 2 L of oxygen with pulse ox of 93%, vital signs are stable, she is in atrial fibrillation with a rate of 88 BPM. She is on point of a senior at 50 ML per hour, no other drips. Right subclavian pacemaker wires in place, incision site is clean dry and intact. Chest x-ray was reviewed showing no acute pulmonary process. Postop blood work has been reviewed. Review of Systems All systems: negative Constitutional: Reports fatigue, Denies chills, Denies fever Eyes: denies blurred vision, denies pain Ears, nose, mouth and throat: Denies headache, Denies sore throat Cardiovascular: Denies chest pain, Denies shortness of breath Respiratory: Reports dyspnea, Denies cough Gastrointestinal: Denies abdominal pain, Denies diarrhea, Denies nausea, Denies vomiting Genitourinary: Denies dysuria, Denies hematuria Musculoskeletal: Denies myalgias Integumentary: Denies pruritus, Denies rash Neurological: Denies numbness, Denies weakness Psychiatric: Denies anxiety, Denies depression Endocrine: Denies fatigue, Denies weight change Past Medical History Past Medical History: Atrial Fibrillation, Coronary Artery Disease (CAD), COPD, GERD/Reflux, Hyperlipidemia, Hypertension, Myocardial Infarction (AR), Osteoarthritis (OA) Additional Past Medical History / Comment(s): "Chronic cough last 6-7 weeks from allergies." Hx gastric ulcers in past. "Kidneys not functioning at 100%." Vertigo occasionally related to inner ear, psoriasis Last Myocardial Infarction Date:: 1998 History of Any Multi-Drug Resistant Organisms: None Reported Past Surgical History: Heart Catheterization With Stent Additional Past Surgical History / Comment(s): Bilateral cataracts removed. D & C, recent GONZALEZ Past Anesthesia/Blood Transfusion Reactions: No Reported Reaction Additional Past Anesthesia/Blood Transfusion Reaction / Comment(s): Vertigo@ times Date of Last Stent Placement:: 1998 Smoking Status: Former smoker - Past Family History Brother(s) Family Medical History: Cancer Father Family Medical History: Cancer Sister(s) Family Medical History: Cancer Medications and Allergies Home Medications Medication Instructions Recorded Confirmed Type Cholecalciferol [Vitamin D3 (25 2,000 unit PO QAM 09/11/15 06/08/22 History Mcg = 1000 Iu)] Cyanocobalamin [Vitamin B-12] 3,000 mcg PO QAM 09/11/15 06/08/22 History Digoxin [Lanoxin] 125 mcg PO QAM 09/11/15 06/08/22 History Enalapril [Vasotec] 10 mg PO QAM 09/11/15 06/08/22 History Loratadine [Claritin] 10 mg PO DAILY 09/11/15 06/08/22 History Warfarin [Coumadin] 5 mg PO MO 09/11/15 06/08/22 History Albuterol Inhaler [Ventolin Hfa 2 puff INHALATION RT-Q4H PRN 11/11/16 06/08/22 History Inhaler] Aspirin EC [Ecotrin Low Dose] 81 mg PO QAM 11/11/16 06/08/22 History Metoprolol Tartrate [Lopressor] 100 mg PO BID 11/11/16 06/08/22 History hydroCHLOROthiazide 25 mg PO QAM 11/11/16 06/08/22 History Atorvastatin [Lipitor] 20 mg PO HS 03/04/22 06/08/22 History Warfarin [Coumadin] 2.5 mg PO SUTUWETHFRSA 03/16/22 06/08/22 History Ascorbic Acid [Vitamin C] 500 mg PO DAILY 03/18/22 06/08/22 History Multivit-Min/Folic Acid/Biotin 133.3 mcg PO DAILY 03/18/22 06/08/22 History [Hair, Skin and Nails Softgel] Megestrol [Megace] 40 mg PO BID 05/10/22 06/08/22 History dilTIAZem HCL 30 mg PO TID 05/10/22 06/08/22 History Allergies Allergy/AdvReac Type Severity Reaction Status Date / Time latex Allergy Itchy,rash Verified 06/03/22 15:15 shellfish derived [Shellfish] Allergy Anaphylaxis Verified 06/03/22 15:15 Physical Exam Vitals: Vital Signs Temp Pulse Pulse Resp BP BP BP 06/08/22 14:15 72 15 120/92 06/08/22 14:00 76 22 118/98 06/08/22 13:45 77 5 L 06/08/22 13:43 78 12 06/08/22 12:42 68 16 127/62 123/68 06/08/22 12:27 73 16 118/57 122/57 06/08/22 12:13 94 16 111/56 125/60 06/08/22 12:12 95 16 126/60 06/08/22 08:56 97.9 F 94 18 123/69 Pulse Ox 06/08/22 14:15 93 L 06/08/22 14:00 75 L 06/08/22 13:45 06/08/22 13:43 06/08/22 12:42 96 06/08/22 12:27 98 06/08/22 12:13 96 06/08/22 12:12 95 06/08/22 08:56 94 L Intake and Output 06/08/22 06/08/22 06/08/22 06:59 14:59 22:59 Intake Total 1250 Balance 1250 Intake: IV 1250 Sodium Chloride 0.9% 1, 50 000 ml @ 50 mls/hr IV . Q20H [facility] Rx#:[id number] Other: Weight 149.9 kg ABP, PAP, CO, CI - Last 8 Hours Arterial Blood Pressure 116/54 Arterial Blood Pressure 108/51 Arterial Blood Pressure 118/60 Arterial Blood Pressure 120/58 GENERAL EXAM: Alert, very pleasant, 71-year-old morbidly obese white female, resting comfortably in bed in the ICU comfortable in no apparent distress. HEAD: Normocephalic/atraumatic. EYES: Normal reaction of pupils, equal size. Conjunctiva pink, sclera white. NOSE: Clear with pink turbinates. THROAT: No erythema or exudates. NECK: No masses, no JVD, no thyroid enlargement, no adenopathy. CHEST: No chest wall deformity. Symmetrical expansion. Right subclavian temporary pacemaker wire insertion site is clean dry and intact LUNGS: Equal air entry with no crackles, wheeze, rhonchi or dullness. CVS: Irregular rate and rhythm, normal S1 and S2, no gallops, no murmurs, no rubs ABDOMEN: Soft, nontender. No hepatosplenomegaly, normal bowel sounds, no guarding or rigidity. EXTREMITIES: No clubbing, no edema, no cyanosis, 2+ pulses and upper and lower extremities. MUSCULOSKELETAL: Muscle strength and tone normal. SPINE: No scoliosis or deformity SKIN: No rashes CENTRAL NERVOUS SYSTEM: Alert and oriented -3. No focal deficits, tone is normal in all 4 extremities. PSYCHIATRIC: Alert and oriented -3. Appropriate affect. Intact judgment and insight. Results - Laboratory Findings CBC and BMP: 06/08/22 13:40 06/08/22 13:40 PT/INR, D-dimer PT 13.4 sec (9.0-12.0) H 06/08/22 13:40 INR 1.3 (<1.2) H 06/08/22 13:40 Abnormal lab findings: Abnormal Labs 06/06/22 06/08/22 06/08/22 10:15 08:40 13:40 RBC 3.30 L MCV 108.5 H MCH 35.3 H RDW 17.2 H Lymphocytes # 0.6 L Macrocytosis Marked A PT 13.4 H INR 1.3 H Chloride BUN Albumin Crossmatch See Detail 06/08/22 06/08/22 13:40 13:40 RBC MCV MCH RDW Lymphocytes # Macrocytosis PT 13.4 H INR 1.3 H Chloride 108 H BUN 18 H Albumin 3.4 L Crossmatch - Diagnostic Findings Chest x-ray: report reviewed, image reviewed Assessment and Plan Plan: Assessment: #1. Symptomatic severe aortic valve stenosis, status post transcatheter aortic valve replacement on 06/08/2022 #2. Morbid obesity with BMI of 55 kg/m #3. Coronary artery disease with previous stenting #4. Atrial fibrillation #5. Hypertension #6. Hyperlipidemia #7. Myocardial infarction in 1999 #8. Nonsmoker, and preop PFT showed moderate restriction Plan: Continue current medical treatment Patient is doing well in the postoperative period Continue close monitoring in intensive care unit Hemodynamically stable Breathing comfortably Postoperative chest x-ray reviewed showing no acute findings Postoperative blood work has been reviewed GI and DVT prophylaxis and home meds per CT surgery Prophylactic antibiotics per CT surgery Follow-up echo tomorrow I have personally seen and examined the patient, performed the documentation and the assessment and plan as written. Number of minutes spent on the visit: [15] Time with Patient: Greater than 30
[2022-06-08] MEDS: DILTIAZEM ORAL 30 MG TAB PO SCH ×2 (17:44→23:15)
[2022-06-08] MEDS ORDERED: WARFARIN 2.5 MG TAB PO SCH (18:00)
[2022-06-08] MEDS: ceFAZolin 3 GM in SODIUM CHLORIDE 0.9% 100 ML IVPB SCH (19:50)
[2022-06-08] MEDS: METOPROLOL TARTRATE 50 MG TAB PO SCH (19:50)
[2022-06-08] MEDS: MEGESTROL 40 MG TAB PO SCH (19:51)
[2022-06-08] MEDS ORDERED: ATORVASTATIN 20 MG TAB PO SCH (21:00)
[2022-06-09] MEDS: ceFAZolin 3 GM in SODIUM CHLORIDE 0.9% 100 ML IVPB SCH ×2 (02:18→11:28)
[2022-06-09 06:23] LABS: Anisocytosis Slight; Basophils % (A) 0 %; Eosinophils # (A) 0.3 k/uL (0-0.7); Eosinophils % (A) 2 %; HCT 35.1 % (34.0-46.0); HGB 11.2 gm/dL (11.4-16.0); Hypochromasia Slight; Lymphocytes # (A) 0.7 k/uL (1.0-4.8); Lymphocytes % (A) 4 %; MCH 33.8 pg (25.0-35.0); MCV 105.5 fL (80.0-100.0); Macrocytosis Moderate; Mean Platelet Volume 8.7; Monocytes # (A) 0.6 k/uL (0-1.0); Monocytes % (A) 4 %; Neutrophils # (A) 13.6 k/uL (1.3-7.7); Neutrophils % (A) 90 %; Platelet Count 226 k/uL (150-450); RBC 3.33 m/uL (3.80-5.40); RDW 16.5 % (11.5-15.5); WBC 15.2 k/uL (3.8-10.6)
[2022-06-09 06:29] LABS: INR 1.4 (<1.2); Prothrombin Time 14.9 sec (9.0-12.0)
[2022-06-09 06:33] LABS: Ionized Calcium 4.8 mg/dL (4.5-5.3)
[2022-06-09 07:04] LABS: Albumin 3.6 g/dL (3.5-5.0); Calcium 8.5 mg/dL (8.4-10.2); Total Bilirubin 0.6 mg/dL (0.2-1.3)
[2022-06-09 07:06] LABS: Magnesium 1.9 mg/dL (1.6-2.3); Potassium 4.5 mmol/L (3.5-5.1)
[2022-06-09] MEDS ORDERED: PANTOPRAZOLE 40 MG TABLET PO SCH (07:30)
[2022-06-09] MEDS: MAGNESIUM SULFATE-D5W PMX 1 GM in DEXTROSE/WATER 1 100ML.BAG IVPB SCH ×2 (07:46→08:51)
--- NOTE | 2022-06-09 08:08 | XR ---
EXAMINATION TYPE: XR chest 1V portable DATE OF EXAM: 06/09/2022 COMPARISON: 06/08/2022 HISTORY: Shortness of breath TECHNIQUE: Single frontal view of the chest is obtained. FINDINGS: There is no focal air space opacity, pleural effusion, or pneumothorax seen. The cardiac s ilhouette size is within normal limits. The osseous structures are intact. Linear band of density in the left upper lobe stable from prior exam likely related to chronic scar or atelectasis. Heart enlar ged. Coarsened interstitium. Underlying COPD suspected. Left suprahilar nodular area of density less apparent on today's exam may be on the basis of superimposed structures and patient rotation. IMPRESSION: 1. COPD correlate for chronic interstitial lung disease.
[2022-06-09] MEDS: DILTIAZEM ORAL 30 MG TAB PO SCH (08:11)
[2022-06-09] MEDS: METOPROLOL TARTRATE 50 MG TAB PO SCH (08:12)
[2022-06-09] MEDS: MEGESTROL 40 MG TAB PO SCH (08:13)
[2022-06-09 08:39] VITALS: TEMP 97.8
[2022-06-09] MEDS ORDERED: LORATADINE 10 MG TAB PO SCH (09:00)
[2022-06-09] MEDS ORDERED: ASCORBIC ACID 500 MG TAB PO SCH (09:00)
[2022-06-09] MEDS ORDERED: NON FORMULARY DRUG (Multivit-Min/Folic Acid/Biotin [Hair, Skin And Nails Softgel] 133.3 MC PO SCH (09:00)
[2022-06-09] MEDS ORDERED: MAGNESIUM HYDROXIDE 2,400 MG/10 ML CUP PO PRN (09:00)
[2022-06-09] MEDS ORDERED: CHOLECALCIFEROL 25 MCG (1000 IU) TABLET PO SCH (09:00)
[2022-06-09] MEDS ORDERED: lisinopriL 20 MG TAB PO SCH (09:00)
[2022-06-09] MEDS ORDERED: CLOPIDOGREL 75 MG TAB PO SCH (09:00)
[2022-06-09] MEDS ORDERED: CYANOCOBALAMIN 500 MCG TAB PO SCH (09:00)
[2022-06-09] MEDS ORDERED: hydroCHLOROthiazide 25 MG TAB PO SCH (09:00)
[2022-06-09] MEDS ORDERED: DIGOXIN 125 MCG TAB PO SCH (09:00)
[2022-06-09] MEDS ORDERED: bisacodyL 10 MG SUPP RECTAL PRN (09:00)
--- NOTE | 2022-06-09 09:41 | CA ---
Transthoracic Echo Report Name: Ellen Martin Age: 71 Gender: F : 1950 Exam Date: 06/09/2022 07:30 Exam Location: [facility] Ht (in): 65 Wt (lb): 330 Ordering Physician: Bessy Steve Attending/Referring Phys: [id number], [employer] Bessy Krause, [place] Procedure CPT: Indications: post TAVR Cardiac Hx: Post TAVR, CAD, SC WITH CATH AND 1 STENT, HTN, AFIB, HYPERLIPIDEMIA. Technical Quality: Technically difficult study Contrast 1: Lumason Total Dose (mL): 1 Contrast 2: Total Dose (mL): MEASUREMENTS (Male / Female) Normal Values 2D ECHO LV Diastolic Diameter PLAX 3.2 cm 4.2 - 5.9 / 3.9 - 5.3 cm LV Systolic Diameter PLAX 1.8 cm IVS Diastolic Thickness 1.2 cm 0.6 - 1.0 / 0.6 - 0.9 cm LVPW Diastolic Thickness 1.4 cm 0.6 - 1.0 / 0.6 - 0.9 cm LV Relative Wall Thickness 0.8 RV Internal Dim ED PLAX 1.8 cm M-MODE Aortic Root Diameter MM 2.8 cm LA Systolic Diameter MM 4.0 cm LA Ao Ratio MM 1.4 AV Cusp Separation MM 1.1 cm DOPPLER AV Peak Velocity 264.3 cm/s AV Peak Gradient 27.9 mmHg AV Mean Velocity 175.8 cm/s AV Mean Gradient 15.0 mmHg AV Velocity Time Integral 45.4 cm LVOT Peak Velocity 127.6 cm/s LVOT Peak Gradient 6.5 mmHg MV Area PHT 4.8 cm??? MR Peak Velocity 177.6 cm/s MR Peak Gradient 12.6 mmHg Mitral E Point Velocity 60.1 cm/s Mitral A Point Velocity 56.9 cm/s Mitral E to A Ratio 1.1 MV Deceleration Time 158.7 ms TR Peak Velocity 168.9 cm/s TR Peak Gradient 11.4 mmHg Right Ventricular Systolic Press 16.4 mmHg FINDINGS Left Ventricle Mildly increased septal wall thickness. Moderately increased posterior wall thickness. Left ventricular ejection fraction is estimated at 55-60_ %. Left ventricular cavity size normal. Right Ventricle The right ventricle is normal in size and function. Right Atrium The right atrium is normal in size. Left Atrium The left atrium is normal in size. Mitral Valve Structurally normal mitral valve without significant stenosis or prolapse. There is no mitral regurgitation. Aortic Valve Normally functioning bioprosthetic aortic valve without stenosis with peak gradient 27 mmHg, mean gradient 15 mmHg. No aortic regurge Tricuspid Valve Structurally normal tricuspid valve without significant stenosis. Pulmonary artery systolic pressure is normal. Mild tricuspid regurgitation. Pulmonic Valve Structurally normal pulmonic valve without significant stenosis. There is no pulmonic regurgitation. Pericardium Normal pericardium without effusion. Aorta Normal aortic root dimension. CONCLUSIONS Normal LV size and systolic function. There is moderate concentric LVH. There is mild tricuspid regurgitation. There is a I aortic valve bioprosthesis which appears to be stable without significant gradient and no aortic regurgitation. No pericardial effusion Previewed by: Dr. Abelardo Ordaz MD (Electronically Signed) Final Date: 09 June 2022 09:40
[2022-06-09 10:24] VITALS: BMI 55.3
[2022-06-09 10:27] VITALS: BP 113/66
[2022-06-09 11:04] VITALS: PULSE 73; RESP 19
--- NOTE | 2022-06-09 11:07 | P.PN ---
Subjective Progress Note Date: 06/09/22 Principal diagnosis: Status post TaVR 71-year-old female patient with symptomatic significant aortic valve stenosis as well as aortic valvular insufficiency was evaluated in the heart valve clinic. Patient sees Dr[facility] flores on from [facility], and her PCP is Dr. Franks. She has history of morbid obesity, severe osteoarthritis of her back and knees, history of coronary artery disease, atrial fibrillation, hypertension, hyperlipidemia, previous myocardial infarction in 1999 with stenting of the right coronary artery. Patient has been having symptoms of fatigue. Cardiac catheterization showed no significant coronary artery disease, and echocardiographically shows severe aortic valvular stenosis. Patient was felt to represent significant risk for surgical aortic valve replacement, and she was offered transcatheter aortic valve replacement which she underwent today on 06/08/2022. She was seen in the postoperative period in the ICU, resting comfortably in bed, breathing comfortably, hemodynamically patient is stable, she is on 2 L of oxygen with pulse ox of 93%, vital signs are stable, she is in atrial fibrillation with a rate of 88 BPM. She is on point of a senior at 50 ML per hour, no other drips. Right subclavian pacemaker wires in place, incision site is clean dry and intact. Chest x-ray was reviewed showing no acute pulmonary process. Postop blood work has been reviewed. Reevaluated today on 06/09/2022, patient remains in the ICU, however she is doing extremely well, and she is being considered for discharge home today. She is on room air, she has no active pulmonary symptoms, no GI symptoms, patient is hemodynamically stable. Objective - Vital Signs Vital signs: Vital Signs Temp 97.8 F 06/09/22 08:00 Pulse 86 06/09/22 10:00 Resp 25 H 06/09/22 10:00 BP 113/66 06/09/22 10:00 Pulse Ox 92 L 06/09/22 10:00 FiO2 Intake & Output 06/08/22 06/09/22 06/09/22 18:59 06:59 18:59 Intake Total 1400 700 500 Output Total 350 1425 550 Balance 1050 -725 -50 Weight 149.9 kg 150.7 kg 150.7 kg Intake: IV 1400 200 Magnesium Sulfate-D5w Pmx 200 1 gm In Dextrose/Water 1 100ml.bag @ 100 mls/hr IVPB Q1H [facility] Rx#: [id number] Sodium Chloride 0.9% 1, 200 000 ml @ 50 mls/hr IV . Q20H [facility] Rx#:[id number] Intake, IV Titration 200 Amount ceFAZolin 3 gm In Sodium 200 Chloride 0.9% 100 ml @ 100 mls/hr IVPB Q8H [facility] Rx#:[id number] Oral 500 300 Output: Urine 350 1425 550 Other: Voiding Method Bedside Commode ABP, PAP, CO, CI - Last Documented Arterial Blood Pressure 125/57 - Exam Physical Exam: Revealed a 71-year-old female obese in no distress. Head: Atraumatic, normocephalic. HEENT:[Neck is supple.] [No neck masses.] [No thyromegaly.] [No JVD.] Chest: [Clear throughout, no crackles, no rhonchi, no wheezes.] Cardiac Exam: [Normal S1 and S2, 2/6 systolic murmur thought the precordium Abdomen: [Soft, nontender, no megaly, no rebound, no guarding, normal bowel sounds.] Extremities: [No clubbing, no edema, no cyanosis.] Neurological Exam: [No focal neurologic deficit.] Alert oriented 3 no focal deficits. Psychiatric: Normal mood affect and normal mental status examination. - Labs CBC & Chem 7: 06/09/22 06:09 06/09/22 06:09 Labs: Abnormal Lab Results - Last 24 Hours (Table) 06/06/22 06/08/22 06/08/22 Range/Units 10:15 13:40 13:40 WBC (3.8-10.6) k/uL RBC 3.30 L (3.80-5.40) m/uL Hgb (11.4-16.0) gm/dL MCV 108.5 H (80.0-100.0) fL MCH 35.3 H (25.0-35.0) pg RDW 17.2 H (11.5-15.5) % Neutrophils # (1.3-7.7) k/uL Lymphocytes # 0.6 L (1.0-4.8) k/uL Macrocytosis Marked A PT 13.4 H (9.0-12.0) sec INR 1.3 H (<1.2) Chloride (98-107) mmol/L BUN (7-17) mg/dL Glucose (74-99) mg/dL Albumin (3.5-5.0) g/dL Crossmatch See Detail 06/08/22 06/09/22 06/09/22 Range/Units 13:40 06:09 06:09 WBC 15.2 H (3.8-10.6) k/uL RBC 3.33 L (3.80-5.40) m/uL Hgb 11.2 L (11.4-16.0) gm/dL MCV 105.5 H (80.0-100.0) fL MCH (25.0-35.0) pg RDW 16.5 H (11.5-15.5) % Neutrophils # 13.6 H (1.3-7.7) k/uL Lymphocytes # 0.7 L (1.0-4.8) k/uL Macrocytosis PT (9.0-12.0) sec INR (<1.2) Chloride 108 H (98-107) mmol/L BUN 18 H 18 H (7-17) mg/dL Glucose 153 H (74-99) mg/dL Albumin 3.4 L (3.5-5.0) g/dL Crossmatch 06/09/22 Range/Units 06:09 WBC (3.8-10.6) k/uL RBC (3.80-5.40) m/uL Hgb (11.4-16.0) gm/dL MCV (80.0-100.0) fL MCH (25.0-35.0) pg RDW (11.5-15.5) % Neutrophils # (1.3-7.7) k/uL Lymphocytes # (1.0-4.8) k/uL Macrocytosis PT 14.9 H (9.0-12.0) sec INR 1.4 H (<1.2) Chloride (98-107) mmol/L BUN (7-17) mg/dL Glucose (74-99) mg/dL Albumin (3.5-5.0) g/dL Crossmatch Assessment and Plan Plan: Assessment:Symptomatic severe aortic valve stenosis status post TAVR postoperative day #1 morbid obesity. BMI of 55 Chronic atrial fibrillation Mild intermittent asthma Benign essential hypertension Dyslipidemia Recommendation: Agree with discharge planning Patient to resume her home meds Continue incentive spirometry Will follow as needed Time with Patient: Less than 30
--- NOTE | 2022-06-09 13:18 | P.DS ---
Providers Date of admission: 06/08/22 08:09 Expected date of discharge: 06/09/22 Attending physician: Bryce Worthington DO Consults: 06/08/22 08:00 Consult to Anesthesia Routine Consulting Provider: Anesthesia,Services Consult Reason/Comments: Cardiac Surgery Pre-Op 06/08/22 13:29 Consult Physician Routine Consulting Provider: Moy Luna Consult Reason/Comments: Structural Engineering Project Manager Consult: post cardiac surgery Do you want consulting provider notified?: Yes Consult Physician Routine Consulting Provider: Fidel Ferguson Consult Reason/Comments: Therapeutic Assistant Consult: post cardiac surgery Do you want consulting provider notified?: Yes Primary care physician: Óscar Franks [facility] Course: MEDICAL HISTORY: 1. Calcified aortic valve with severe symptomatic aortic valve stenosis 2. Symptoms of shortness of breath consistent with NYHA class II 3. Hypertension 4. Hyperlipidemia 5. Chronic atrial fibrillation on Coumadin for anticoagulation 6. Coronary artery disease status post PCI in 1999 7. Previous tobacco dependence PROCEDURE: 1. Percutaneous aortic valve implantation using a 23 mm Maximiliano 2. Transesophageal echocardiography performed by anesthesia 3. Ultrasound-guided access and repair of right femoral artery access site by Perclose closure device and balloon tamponade 4. Placement of temporary pacemaker wire 5. Aortic root angiography HISTORY OF PRESENT ILLNESS: This is a 71-year-old female who follows on an outpatient basis with Dr. Franks for primary care and Dr. Cobos for cardiology. She has a known history of severe aortic stenosis and has been symptomatic with increased exertional dyspnea as well as lower extremity edema occasional chest pressure. She had been referred to structural heart clinic for evaluation for transcatheter aortic valve replacement after heart catheterization and transesophageal echocardiogram were completed. Echocardiography demonstrated systolic function with EF 50-55%, aortic valve area 0.8 cm with a peak/mean gradient 62/44 mmHg. Heart catheterization showed mild RCA in-stent restenosis. After workup was completed STS risk score was calculated along with incremental risk and the patient was felt to be better suited for transcatheter aortic valve replacement which was recommended. The usual course of TAVR was discussed in detail the patient, risks and benefits were reviewed, shared decision making between cardiology, surgery, and the patient/family took place, and the patient consented to proceed with the procedure. HOSPITAL COURSE: The patient was brought to the hospital on 06/08/22, was taken to the extended stay area, prepared in the usual fashion, and subsequently taken to the cardiac catheterization laboratory where Dr. Worthington and Dr. Ferguson completed TAVR procedure under general anesthesia with fluoroscopy and GONZALEZ. The valve was deployed under rapid ventricular pacing and proceeded without event. At the end of the procedure there was mean gradient 14 mm Hg, hemodynamics were felt to be acceptable, and there was no evidence of significant perivalvular leak. Upon completion of the procedure the patient was extubated and was transferred to the cardiovascular intensive care unit where she was recovered and monitored hemodynamically. Her oxygen was titrated down, she was tolerating oral diet, her pain was controlled, follow-up TTE demonstrated normal left ventricular systolic function, normally functioning bioprosthetic aortic valve without stenosis with mean gradient 15 mmHg and no regurgitation, and she was ready to be discharged to home on postoperative day #1. She received written and verbal instruction regarding her medications, activity restrictions, signs and symptoms requiring physician notification, and follow-up appointments. Patient Condition at Discharge: Stable Plan - Discharge Summary Discharge Rx Participant: Yes New Discharge Prescriptions: New Clopidogrel [Plavix] 75 mg PO DAILY #30 tab Acetaminophen Tab [Tylenol] 650 mg PO Q4HR PRN tab PRN Reason: Fever And/ Or Mild Pain (1-3) Continue Cyanocobalamin [Vitamin B-12] 3,000 mcg PO QAM Cholecalciferol [Vitamin D3 (25 Mcg = 1000 Iu)] 2,000 unit PO QAM Warfarin [Coumadin] 5 mg PO MO Enalapril [Vasotec] 10 mg PO QAM Digoxin [Lanoxin] 125 mcg PO QAM Loratadine [Claritin] 10 mg PO DAILY Albuterol Inhaler [Ventolin Hfa Inhaler] 2 puff INHALATION RT-Q4H PRN PRN Reason: Shortness Of Breath Metoprolol Tartrate [Lopressor] 100 mg PO BID hydroCHLOROthiazide 25 mg PO QAM Multivit-Min/Folic Acid/Biotin [Hair, Skin and Nails Softgel] 133.3 mcg PO DAILY Megestrol [Megace] 40 mg PO BID Atorvastatin [Lipitor] 20 mg PO HS Warfarin [Coumadin] 2.5 mg PO SUTUWETHFRSA Ascorbic Acid [Vitamin C] 500 mg PO DAILY dilTIAZem HCL 30 mg PO TID Discontinued Aspirin EC [Ecotrin Low Dose] 81 mg PO QAM Discharge Medication List Cholecalciferol [Vitamin D3 (25 Mcg = 1000 Iu)] 2,000 unit PO QAM 09/11/15 [History] Cyanocobalamin [Vitamin B-12] 3,000 mcg PO QAM 09/11/15 [History] Digoxin [Lanoxin] 125 mcg PO QAM 09/11/15 [History] Enalapril [Vasotec] 10 mg PO QAM 09/11/15 [History] Loratadine [Claritin] 10 mg PO DAILY 09/11/15 [History] Warfarin [Coumadin] 5 mg PO MO 09/11/15 [History] Albuterol Inhaler [Ventolin Hfa Inhaler] 2 puff INHALATION RT-Q4H PRN 11/11/16 [History] Metoprolol Tartrate [Lopressor] 100 mg PO BID 11/11/16 [History] hydroCHLOROthiazide 25 mg PO QAM 11/11/16 [History] Atorvastatin [Lipitor] 20 mg PO HS 03/04/22 [History] Warfarin [Coumadin] 2.5 mg PO SUTUWETHFRSA 03/16/22 [History] Ascorbic Acid [Vitamin C] 500 mg PO DAILY 03/18/22 [History] Multivit-Min/Folic Acid/Biotin [Hair, Skin and Nails Softgel] 133.3 mcg PO DAILY 03/18/22 [History] Megestrol [Megace] 40 mg PO BID 05/10/22 [History] dilTIAZem HCL 30 mg PO TID 05/10/22 [History] Acetaminophen Tab [Tylenol] 650 mg PO Q4HR PRN tab 06/09/22 [Rx] Clopidogrel [Plavix] 75 mg PO DAILY #30 tab 06/09/22 [Rx] Follow up Appointment(s)/Referral(s): Adelfo Cobos MD [STAFF PHYSICIAN] - 06/15/22 4:15 pm (You will be seen 06/15 for groin check. You also have a 30 day post TAVR echo 07/12/22 @ 4pm. Please come to the valve clinic before the echo appointment) Óscar Franks DO [Primary Care Provider] - As Needed Clinic,Structural Heart [NON-STAFF] - 07/12/22 3:30 pm (Please come to the valve clinic prior to your echo appointment) Ambulatory/Diagnostic Orders: Basic Metabolic Panel [LAB.AMB] Location: None Selected Complete Blood Count w/diff [LAB.AMB] Time Frame: 07/12/22, Facility: [facility], Location: Laboratory Main [facility] Activity/Diet/Wound Care/Special Instructions: DISCHARGE INSTRUCTIONS: 1. No driving for 1 week, or until physician gives their ok. 2. No lifting, pushing, or pulling more than 5-10 pounds for 1 week. 3. Hold both groins when you cough or sneeze for the next 2 weeks. Bruising is common, but report increased swelling, pain or fever >101F 4. Shower daily. No pool, hot tub, or bathtub for 1 week 5. No powders, lotions, ointments on incisions. 6. No straining, including for bowel movements. Use stool softner if necessary 7. Stairs are not an issue. Go slowly, using handrail and take 1 step at a time. Ambulate several times daily 8. Continue pain control per as needed orders. 9. Take only the medications listed on your discharge form 10. Eat low salt (limited to 2 grams or 2000 milligrams) daily, avoid adding salt, avoid canned/processed foods 11. Take your weight daily in the morning and record, bring with you to your follow up appointments 12. Keep all follow up appointments. You will need a valve clinic appointment at 30 days and 1 year post procedure for follow up 13. You have been referred to and are expected to begin Cardiac Rehab in approximately 4 weeks. 14. You will need antibiotics prior to any dental work, including cleanings, and any surgeries to prevent Endocarditis (bacterial infection in your heart) For any questions or concerns please call your valve coordinators: Bessy or Jamie @ Discharge Disposition: HOME SELF-CARE
[2022-06-09] MEDS ORDERED: SENNOSIDES-DOCUSATE SODIUM 1 EACH TAB PO SCH (21:00)
[2022-06-13] MEDS ORDERED: WARFARIN 5 MG TAB PO SCH (18:00)
== END 2022-06-09 12:30 | disposition home or self-care (01) | DRG 267 ==
LOC: 2ORMAIN 08:09 → 2SICU 12:48
PROVIDERS: ADMIT Internal Medicine; ATTEND Internal Medicine
PROC: 02RF38Z Replacement of Aortic Valve with Zooplastic Tissue, Percutaneous Approach (ICD-10-PCS; principal; 2022-06-08 10:30)
DX: I35.0 Nonrheumatic aortic (valve) stenosis (principal); I48.20 Chronic atrial fibrillation, unspecified; T82.855A Stenosis of coronary artery stent, initial encounter; Z68.43 Body mass index [BMI] 50.0-59.9, adult; E66.01 Morbid (severe) obesity due to excess calories; I10 Essential (primary) hypertension; J44.9 Chronic obstructive pulmonary disease, unspecified; J45.20 Mild intermittent asthma, uncomplicated; I35.8 Other nonrheumatic aortic valve disorders; M17.0 Bilateral primary osteoarthritis of knee; M47.9 Spondylosis, unspecified; I25.10 Atherosclerotic heart disease of native coronary artery without angina pectoris; E78.5 Hyperlipidemia, unspecified; L40.9 Psoriasis, unspecified; R07.89 Other chest pain; R60.0 Localized edema; Y71.1 Therapeutic (nonsurgical) and rehabilitative cardiovascular devices associated with adverse incidents; Z00.6 Encounter for examination for normal comparison and control in clinical research program; I25.2 Old myocardial infarction; Z87.11 Personal history of peptic ulcer disease; Z87.891 Personal history of nicotine dependence; Z79.01 Long term (current) use of anticoagulants; Z79.82 Long term (current) use of aspirin; Z91.040 Latex allergy status; Z91.013 Allergy to seafood; Z98.41 Cataract extraction status, right eye; Z79.899 Other long term (current) drug therapy; Z98.42 Cataract extraction status, left eye; Z80.9 Family history of malignant neoplasm, unspecified
CPT/HCPCS: 33210; 33362; 71045; 80053; 82330; 83735; 85025; 85610; 85730; 86850; 86900; 86901; 86920; 93306; 93312; 93320; 93325; 94640

== ENCOUNTER → 2024-03-08 | Outpatient (CLI) | payer MEDICARE | END | disposition home or self-care (01) | LOC: LABWHC1 11:43 | PROVIDERS: ATTEND Orthopaedic Surgery | DX: Z53.9 Procedure and treatment not carried out, unspecified reason (principal) ==

== ENCOUNTER → 2024-03-08 | Outpatient (CLI) | payer MEDICARE ==
[2024-03-08 13:23] LABS: Partial Thromboplastin Time 27.8 sec (22.0-30.0); Prothrombin Time 19.6 sec (10.0-12.5)
[2024-03-08 15:32] LABS: HCT 37.3 % (37.2-46.3); HGB 12.5 g/dL (12.0-15.0); MCH 36.2 pg (27.0-32.0); MCHC 33.5 g/dL (32.0-37.0); MCV 108.1 FL (80.0-97.0); Mean Platelet Volume 10.8 FL (9.5-12.2); NRBC Per 100 WBC 0 X 10*3/uL (0.00-0.01); Platelet Count 199 X 10*3/uL (140-440); RBC 3.45 X 10*6/uL (4.10-5.20); RDW 14.5 % (11.5-14.5)
[2024-03-08 16:04] LABS: ALT 33 U/L (8-44); AST 32 U/L (13-35); Albumin 3.9 g/dL (3.8-4.9); Albumin/Globulin Ratio 1.15 Ratio (1.60-3.17); Alkaline Phosphatase 93 U/L (41-126); Blood Urea Nitrogen 22.8 mg/dL (9.0-27.0); Calcium 10.1 mg/dL (8.7-10.3); Carbon Dioxide 26.7 mmol/L (21.6-31.8); Chloride 101 mmol/L (96-109); Chol/HDL Ratio 2.05 Ratio; Globulin 3.4 g/dL (1.6-3.3); Glucose 103 mg/dL (70-110); LDL Cholesterol,Calculated 42.4 mg/dL (0.0-131.0); Potassium 4.4 mmol/L (3.5-5.5); Sodium 142 mmol/L (135-145); Total Bilirubin 0.5 mg/dL (0.3-1.2); Total Protein 7.3 g/dL (6.2-8.2)
== END | disposition home or self-care (01) ==
LOC: LABWHC1 11:45
PROVIDERS: ATTEND Internal Medicine Interventional Cardiology
DX: E78.2 Mixed hyperlipidemia (principal); I21.09 ST elevation (STEMI) myocardial infarction involving other coronary artery of anterior wall; I48.91 Unspecified atrial fibrillation; R94.31 Abnormal electrocardiogram [ECG] [EKG]
CPT/HCPCS: 36415; 80053; 80061; 85027; 85610; 85730; 87070; 93005

== ENCOUNTER 2024-03-19 10:04 | Inpatient (IN) | payer MEDICARE ==
[~2024-03-19 10:04] MED LIST changes: +ACETAMINOPHEN TAB 500 MG TAB PO PRN; -ASPIRIN 325 MG TAB PO ONE; -ATORVASTATIN 10 MG TAB PO ONE; -CLEVIDIPINE BUTYRATE 25 MG in EMPTY BAG 1 BAG IV PRN; -CLOPIDOGREL 75 MG TAB PO ONE; -DEXAMETHASONE SOD PHOSPHATE 4 MG/ML 1 ML VIAL IV ONE; -ELECTROLYTE-A SOLUTION 1,000 ML with POTASSIUM CHLORIDE 100 MEQ, MAGNESIUM SULFATE 16 M... IV PRN; +GABAPENTIN 300 MG CAP PO PRN; -HYDROmorphone 0.5 MG/0.5 ML SYRINGE IVP PRN; -INSULIN REGULAR 100 UNIT in SODIUM CHLORIDE 0.9% 100 ML IV PRN; -LACTATED RINGERS 1,000 ML IV SCH; -LIDOCAINE 1% (10MG/ML) FOR IV START INTRADERMA PRN; +MELOXICAM 7.5 MG TAB PO PRN; -METOPROLOL TARTRATE 25 MG TAB PO ONE; -NITROGLYCERIN-D5W PMX 25 MG/250 ML BTL IV PRN; -ONDANSETRON 4 MG/2 ML VIAL IVP ONE; -ONDANSETRON 4 MG/2 ML VIAL IVP PRN; -PROTAMINE SULFATE 250 MG in EMPTY BAG 1 BAG IV PRN; -SODIUM CHLORIDE 0.9% 500 ML 500 ML INTRAARTER PRN; -TRANEXAMIC ACID 2,000 MG in SODIUM CHLORIDE 0.9% 80 ML IV PRN; -ceFAZolin 3 GM in SODIUM CHLORIDE 0.9% 100 ML IVPB ONE
[2024-03-19] MEDS: LACTATED RINGERS 1,000 ML IV SCH (10:35)
[2024-03-19] MEDS: MIDAZOLAM 2 MG/2 ML VIAL IVP ONE (10:41)
[2024-03-19 10:54] LABS: INR 1.8 (<1.2); Partial Thromboplastin Time 27.8 sec (22.0-30.0); Prothrombin Time 17.8 sec (10.0-12.5)
[2024-03-19] MEDS: DEXAMETHASONE SOD PHOSPHATE 4 MG/ML 1 ML VIAL IV ONE (11:05)
[2024-03-19] MEDS: ONDANSETRON 4 MG/2 ML VIAL IVP ONE (11:05)
--- NOTE | 2024-03-19 11:07 | P.ANPRN ---
Procedure Note - Anesthesia - Nerve Block Performed Left [place] Single Time Out Performed: Yes Date of Procedure: 03/19/24 Procedure Start Time: 10:41 Procedure Stop Time: 10:46 Location of Patient: PreOp Indication: Acute Post-Operative Pain, Analgesia, Requested by Surgeon Sedation Type: Sedate with meaningful contact maintained Preparation: Sterile Prep Position: Right Lateral Catheter: None Needle Types: Pajunk Needle Gauge: 21 Ultrasound used to visualize needle placement: Yes Ultrasound used to observe medication spread: Yes Injectate: 0.5% Ropivacaine (see comment for volume) (Ropiv 20ml + decadron 4mg) Blood Aspirated: No Pain Paresthesia on Injection Noted: No Resistance on Injection: Normal Image Stored and Saved: Yes Events: Uneventful and Well Tolerated
--- NOTE | 2024-03-19 11:09 | P.ANPRN ---
Procedure Note - Anesthesia - Nerve Block Performed Left Adductor Canal Infusion Time Out Performed: Yes Date of Procedure: 03/19/24 Procedure Start Time: 10:47 ([id number]) Location of Patient: PreOp Indication: Acute Post-Operative Pain, Analgesia, Requested by Surgeon Sedation Type: Sedate with meaningful contact maintained Preparation: Sterile Prep Position: Supine Catheter: Indwelling Needle Types: On-Q Ultrasound used to visualize needle placement: Yes Ultrasound used to observe medication spread: Yes Injectate: 0.5% Ropivacaine (see comment for volume) (Ropiv 15 ml + decadron 4mg) Blood Aspirated: No Pain Paresthesia on Injection Noted: No Resistance on Injection: Normal Image Stored and Saved: Yes Events: Uneventful and Well Tolerated
[2024-03-19] MEDS ORDERED: TRANEXAMIC 1,000 MG/100ML-NACL 1,000 MG in SALINE 1 100ML.BAG IVPB PRN (11:14)
[2024-03-19 11:19] LABS: ALT 27 U/L (4-34); AST 27 U/L (14-36); African American GFR (CKD) 62 (>60 ml/min/1.73 sqM); Albumin 3.9 g/dL (3.5-5.0); Alkaline Phosphatase 97 U/L (38-126); Anion Gap 8 mmol/L; Blood Urea Nitrogen 27 mg/dL (7-17); Calcium 9.6 mg/dL (8.4-10.2); Carbon Dioxide 28 mmol/L (22-30); Chloride 106 mmol/L (98-107); Glucose 94 mg/dL (74-99); Non-African American GFR(CKD) 54 (>60 ml/min/1.73 sqM); Potassium 4.3 mmol/L (3.5-5.1); Sodium 142 mmol/L (137-145); Total Protein 7.6 g/dL (6.3-8.2)
[2024-03-19] MEDS ORDERED: PROPOFOL 10 MG/ML 20 ML VIAL IV ONE (11:28)
[2024-03-19] MEDS ORDERED: LIDOCAINE 1% INJ 10MG/ML (20 ML MDV) ONE (11:28)
[2024-03-19] MEDS ORDERED: ROCURONIUM 10 MG/ML (5 ML VIAL) IV ONE (11:28)
[2024-03-19] MEDS ORDERED: PHENYLEPHRINE-0.9% NACL SYG 1,000 MCG/10 ML SYRINGE ONE (11:28)
[2024-03-19] MEDS ORDERED: ePHEDrine 50 MG/ML 1 ML VIAL ONE (11:28)
[2024-03-19] MEDS ORDERED: fentaNYL (PF) 50 MCG/ML 2 ML AMP ONE (11:28)
[2024-03-19] MEDS ORDERED: DEXAMETHASONE SOD PHOSPHATE 4 MG/ML 1 ML VIAL ONE (11:28)
[2024-03-19] MEDS ORDERED: TRANEXAMIC 1,000 MG/100ML-NACL PREMIX BAG ONE (11:28)
[2024-03-19] MEDS ORDERED: ROPIVACAINE 5 MG/ML 30 ML VIAL ONE (11:28)
[2024-03-19] MEDS ORDERED: GLYCOPYRROLATE 0.2 MG/ML 2 ML VIAL ONE (11:28)
[2024-03-19] MEDS ORDERED: NEOSTIGMINE 1 MG/ML 10 ML VIAL ONE (11:28)
[2024-03-19] MEDS ORDERED: SUCCINYLCHOLINE CHLORIDE 200 MG/10 ML VIAL IV ONE (11:28)
[2024-03-19] MEDS: SODIUM CHLORIDE 0.9% 100 ML with ceFAZolin 2,000 MG IV ONE (12:11)
[2024-03-19] MEDS ORDERED: ceFAZolin 1 GM/50 ML BAG (PMX) ONE (12:11)
[2024-03-19] MEDS: VANCOMYCIN 1,750 MG in SODIUM CHLORIDE 0.9% 500 ML 500 ML IVPB PRN (12:16)
[2024-03-19] MEDS: ceFAZolin 1,000 MG in SODIUM CHLORIDE 0.9% 1,000 ML IRRIGATION ONE (12:17)
--- NOTE | 2024-03-19 13:03 | P.OP ---
Date of Procedure: 03/19/24 Preoperative Diagnosis: severe osteoarthritis left knee Postoperative Diagnosis: severe osteoarthritis left knee Procedure(s) Performed: left total knee arthroplasty Implants: [employer] Journey II CR Oxinium cruciate retaining femoral component size 6, left [employer] Journey nonporous tibial baseplate size 4, left [employer] Journey II, XLPE Deep Dished articular insert, size 10 mm, Size 3-4, left [employer] Journey Marcy II resurfacing patellar component, oval, 29 mm All components were cemented using Palacos R bone cement The articulation is Oxinium on polyethylene Anesthesia: DEBBIE Surgeon: Óscar Liao Maintenance Parts Technician #1: Charo Mcdonough Estimated Blood Loss (ml): 40 Pathology: none sent Condition: stable Disposition: PACU Indications for Procedure: The patient's knee is end-stage, and conservative management has failed. The operation of knee replacement has been discussed at length in the office, as well as potential risks and complications. These are inclusive of, but not limited to: Infection, bleeding, scarring, discomfort, stiffness, blood vessel and nerve damage, need for further surgery, failure to relieve symptoms, persistence, recurrence, or worsening of problems, loosening, dislocation, wear, blood clot, pulmonary embolism, , gait dysfunction, stiffness, and other risks as discussed in the office. Patient elects to proceed and the consent form has been signed. Operative Findings: the operative findings are consistent with severe osteoarthritis of the left knee Description of Procedure: The patient was seen in the preoperative area, the consent was reviewed and the operative site was marked with a skin marker. The patient verified the procedure and the operative site. An adductor canal pain catheter and an iPACK block were placed by anesthesia in the preoperative area. The patient was then brought to the operating room and positioned on the operating room table in the supine position. Preoperative antibiotics and a gram of tranexamic acid were given intravenously. A general anesthetic was administered by the anesthesia department. Care was taken to make sure that all pressure points were adequately padded. A tourniquet was placed on the upper thigh and the lower extremity was prepped with ChloraPrep and draped in usual sterile fashion. A universal time-out was then performed which confirmed the patient's name, surgical site, ALLERGIES, and consent. The lower extremity was then exsanguinated and tourniquet was inflated to 250 mmHg. A standard anterior midline approach to the knee was performed. The skin and subcutaneous tissue were sharply dissected down to the patellar tendon. A medial parapatellar arthrotomy was then performed. The knee was then extended, the patellar was everted, and the knee was flexed. The infra-patellar fat pad was removed in order to enhance exposure. The anterior horns of both menisci were excised, and a release was performed to the posterior medial aspect of the knee. On gross visual inspection, there was complete loss of articular cartilage in the medial and patellofemoral joint spaces. There was also significant cartilage damage in the lateral compartment. There were multiple periarticular osteophytes globally about the knee which were then removed with a Ronguer. The femoral canal was then opened with the 9.5 mm intramedullary drill. The 8 mm intramedullary jasen was then inserted into the femoral canal with the distal femoral cutting guide set for 5 of valgus. The distal femoral cutting block was then pinned in place. The intramedullary jasen was then removed, and the distal femur was then cut. The cutting block was then removed and the cut was checked for symmetry. The resected bone was then measured to confirm the appropriate distal femoral resection. Next, the sizing guide was then placed and set for 3 external rotation based off of the epicondylar axis and Dinosaur's line. Pins were then placed and the drill holes, and the femur was sized with the sizing stylus. The pins were then removed, and the sizing guide was then removed. The spikes of the appropriate size femoral block was then placed into the predrilled holes, and malleted into place. Two 45 mm pins were then placed into the fixation holes on the cutting block. An stas wing was then used to ensure there would be no notching with the anterior cut. The anterior condyles were cut without notching. The anterior chord cut was then performed, followed by the posterior cut, posterior chamfer cut, and the anterior chamfer cut. The collateral ligaments were protected during the entire process. The cutting block was then removed. Any remaining bone and osteophytes were removed from the femur with a Ronguer. Attention was then directed to the tibia. The remaining ACL was removed with a Ronguer, and the tibia was then gently subluxed forward with a large bent knee retractor. Any remaining menisci were excised. The posterior lateral corner was cauterized in order to coagulate the lateral geniculate artery. The extra medullary tibial cutting guide was then placed, set for the appropriate rotation, slope, and depth of resection. The proximal tibia cutting guide was then pinned in place. Proximal tibia was then cut and sized. A curved osteotome was then used to remove any posterior osteophytes from the distal femur. The femoral trial was placed. A narrow saw blade was then used to remove the anterior intracondylar femoral bone. The CR notch trial was then placed. The tibial trial was placed with the appropriate-sized insert. The knee was able to fully extend and flex to 130 and was stable throughout all range of motion. The knee was then extended and the patella was everted. Patella was then measured, and then using an osteotomy guide, the patella was cut at the appropriate level. The patellar component was sized. The patellar drill guide was placed and the patella was drilled. The patella trial was then placed. The knee was then taken through range of motion with the patella trial and the patella tracked normally using the no thumbs technique. The patella trial was then removed. The knee was then flexed and lug holes were drilled through the femoral trial and the femoral trial was then removed. The tibial was then re- exposed, and the tibial broach guide was then pinned in place after it was set for the appropriate rotation to allow for the most coverage without overhang. The tibia was then reamed and broached. The femoral canal was plugged with autologous bone. The cut surfaces of bone were then irrigated with pulsatile lavage. The knee was also irrigated with Irrisept solution. The components were then opened, the cement was mixed. Cement was placed on the backside of the femoral, tibial, and patellar components. Cement was then applied to the tibial surface and pressurized into the surface using finger pressurization technique. The tibial component was then applied and excess cement was removed after it was impacted securely noted to be flush with the cut surface. In similar fashion, the cement was applied to the cut femoral surface, pressuri zed and using finger pressurization the component was impacted in place. Excess cement was removed. The polyethylene spacer was then implanted and locked into position. Patellar component was then applied in a similar technique and the patellar clamp was used to hold patella in place while the cement hardened. The knee was held in full extension while the cement hardened. Once the cement had fully hardened, the knee was reinspected. Any other cement extrusion was removed the final range of motion testing showed range of motion from 0-130 with excellent stability, both medial and laterally and appropriate alignment of the leg. Patella tracked normally. After the cemented hardened, the tourniquet was released and hemostasis was obtained. A second gram of transexamic acid was given intravenously. The knee was again irrigated. The knee was again taken through range of motion and found to be stable throughout all range of motion of 0-130, and the patella tracked normally. The fascia was then closed with 0 Vicryl followed by #2 strata fix suture. The subcutaneous tissue was closed with 3-0 Vicryl and 3-0 strata fix. Exofin glue was used for the skin and placed with the knee in flexion. After the glue had dried, and Optafoam silver impregnated dressing was applied. A lightly compressive dressing was applied using web roll and Moe wrap. Patient was then transferred to the stretcher and taken to recovery room in stable condition. Sponge and needle counts were correct. The assistant portfolio manager MACHELLE Natarajan was required due the complexity surgery and the need for a skilled surgical assistant certified. She assisted in positioning, draping, retraction, and closure of the wound.
[2024-03-19] MEDS ORDERED: NALOXONE 0.4 MG/ML 1 ML VIAL IV PRN (13:38)
[2024-03-19] MEDS ORDERED: ONDANSETRON 4 MG/2 ML VIAL IVP PRN (13:38)
[2024-03-19] MEDS ORDERED: HYDROmorphone 0.5 MG/0.5 ML SYRINGE IVP PRN ×3 (13:38)
[2024-03-19] MEDS ORDERED: HYDROcodone/APAP 7.5-325MG 1 EACH TAB PO PRN (13:41)
[2024-03-19] MEDS: HYDROmorphone 0.5 MG/0.5 ML SYRINGE IVP PRN (14:15)
[2024-03-19] MEDS: ROPIVACAINE 1,100 MG, SODIUM CHLORIDE 0.9% 500 ML 330 ML, EMPTY PAIN BALL 1 EACH MISCELLANE PRN (14:20)
--- NOTE | 2024-03-19 14:32 | XR ---
EXAMINATION TYPE: XR knee limited LT DATE OF EXAM: 03/19/2024 COMPARISON: NONE TECHNIQUE: Two views submitted HISTORY: Post op FINDINGS: There is a prosthetic knee in near anatomic alignment. There is soft tissue edema and soft tissue e mphysema. IMPRESSION: 1. Postoperative change. Appears in near-anatomic alignment
[2024-03-19] MEDS: SODIUM CHLORIDE 0.9% 1,000 ML IV SCH (16:17)
[2024-03-19] MEDS: WARFARIN 5 MG TAB PO SCH (17:54)
[2024-03-19] MEDS: HYDROcodone/APAP 7.5-325MG 1 EACH TAB PO PRN (17:54)
--- NOTE | 2024-03-19 22:10 | P.CRDCN ---
History of Present Illness History of present illness: HISTORY OF PRESENTING ILLNESS This is a pleasant 77-year-old with past medical history significant of aortic stenosis, s/p TAVR in 2021, HTN, HLD, chronic Afib on anticoagulation, CAD with prior PCI in 1999 and only mild in stent stenosis by [facility] 2021, previous tobacco abuse who presented for elective knee surgery. Patient stated she has been feeling fairly well recently however has been inhibited by knee pain. She underwent left total knee arthroplasty today and with induction of anesthesia had a short run (no strips) however reported approximately 12 beat run of VT. Additionally she had intermittent episodes of Afib with RVR and HR's into the 100's and ectopy with increased PVC's. She was given push of Cardizem during the surgery. She did not have any other hemodynamic or respiratory issues during the procedure. She states she feels well other than a little knee pain. No chest pain or pressure. No SOB. EKG shows Afib with with left axis, minimal ST depressions with minimal ST depressions in the inferior and laterals leads. REVIEW OF SYSTEMS At the time of my exam: CONSTITUTIONAL: Denies fever or chills. CARDIOVASCULAR: Denies chest pain, shortness of breath, orthopnea, PND or palpitations. RESPIRATORY: Denies cough. GASTROINTESTINAL: Denies abdominal pain, diarrhea, constipation, nausea or vomiting. MUSCULOSKELETAL: Denies myalgias. NEUROLOGIC: Denies numbness, tingling or weakness. ENDOCRINE: Denies fatigue, weight change, polydipsia or polyurina. GENITOURINARY: Denies burning, hematuria or urgency with micturation. HEMATOLOGIC: Denies history of anemia or bleeding. PHYSICAL EXAMINATION Vital signs reviewed. CONSTITUTIONAL: No apparent distress. HEENT: Head is normocephalic. Pupils are equal, round. Sclerae anicteric. Mucous membranes of the mouth are moist. No JVD. No carotid bruit. CHEST EXAMINATION: Lungs are clear to auscultation. No chest wall tenderness is noted on palpation or with deep breathing. HEART EXAMINATION: Regular rate and rhythm. S1, S2 heard. No murmurs, gallops or rub. ABDOMEN: Soft, nontender. Positive bowel sounds. EXTREMITIES: 2+ peripheral pulses, no lower extremity edema and no calf tenderness. NEUROLOGIC EXAMINATION: Patient is awake, alert and oriented x3. ASSESSMENT Nonsustained VT during induction of anesthesia, no strip on file, asymptomatic and 12 beat per report Chronic Afib with mild RVR during surgery, improved S/p left knee total arthroplasty 03/19 HTN HLD Severe , S/p TAVR 2021 CAD with prior remote PCI, only mild disease by [facility] 2021 PLAN Patient with nonsustained VT however no further significant ectopy and tolerated surgery well. We will restart home medications including Metoprolol, Cardizem. We will start lower dose Lopressor 50 bid and Cardizem 120mg daily however if needed we will increase. If has significantly more ectopy would consider antiarrhythmics. Borderline bradycardia and likely add back digoxin tomorrow if no significant bradycardia. No ischemic symptoms and monitor her symptomatically Restart Warfarin when OK with surgery Continue with supportive care Borderline BP's and therefore hold Enalapri and HCTZ for now. Past Medical History Past Medical History: Atrial Fibrillation, Coronary Artery Disease (CAD), COPD, GERD/Reflux, Hyperlipidemia, Hypertension, Myocardial Infarction ([place]), Osteoarthritis (OA) Additional Past Medical History / Comment(s): Hx gastric ulcers in past. "Kidn eys not functioning at 100%." Vertigo occasionally related to inner ear, psoriasis. Last Myocardial Infarction Date:: 1998 History of Any Multi-Drug Resistant Organisms: None Reported Past Surgical History: Heart Catheterization With Stent Additional Past Surgical History / Comment(s): Bilateral cataracts removed. D & C, recent GONZALEZ Past Anesthesia/Blood Transfusion Reactions: No Reported Reaction Additional Past Anesthesia/Blood Transfusion Reaction / Comment(s): Vertigo@times Date of Last Stent Placement:: 1998 Past Psychological History: Anxiety Smoking Status: Former smoker Past Alcohol Use History: None Reported Additional Past Alcohol Use History / Comment(s): Quit smoking in 2013, smoked for 41 yrs. Past Drug Use History: None Reported - Past Family History Brother(s) Family Medical History: Cancer Father Family Medical History: Cancer Sister(s) Family Medical History: Cancer Medications and Allergies Home Medications Medication Instructions Recorded Confirmed Type Cyanocobalamin [Vitamin B-12] 1,000 mcg PO HS 09/11/15 03/18/24 History Digoxin [Lanoxin] 125 mcg PO QAM 09/11/15 03/18/24 History Enalapril [Vasotec] 10 mg PO QAM 09/11/15 03/18/24 History Metoprolol Tartrate [Lopressor] 100 mg PO BID 11/11/16 03/18/24 History hydroCHLOROthiazide 25 mg PO QAM 11/11/16 03/18/24 History Atorvastatin [Lipitor] 20 mg PO HS 03/04/22 03/18/24 History Ascorbic Acid [Vitamin C] 1,000 mg PO DAILY 03/18/22 03/18/24 History Cholecalciferol [Vitamin D3 (25 25 mcg PO DAILY 12/19/22 03/18/24 History Mcg = 1000 Iu)] Diltiazem Cd [Cardizem CD] 120 mg PO QAM 12/19/22 03/18/24 History Warfarin [Coumadin] 5 mg PO DAILY 12/19/22 03/18/24 History HYDROcodone/APAP 7.5-325MG [[place] 1 - 2 tab PO Q6H PRN #32 tab 03/19/24 Rx 7.5-325] Pantoprazole Sodium 40 mg PO BID 03/19/24 03/19/24 History Sennosides [Senokot] 2 tab PO DAILY PRN #60 tablet 03/19/24 Rx Allergies Allergy/AdvReac Type Severity Reaction Status Date / Time latex Allergy Itchy,rash Verified 03/19/24 10:17 shellfish derived [Shellfish] Allergy Anaphylaxis Verified 03/19/24 10:17 Physical Exam Vitals: Vital Signs Temp Pulse Resp BP Pulse Ox 03/19/24 20:00 97.7 F 58 L 16 119/64 97 03/19/24 15:46 98.5 F 66 16 125/77 97 03/19/24 15:28 63 22 100/58 99 03/19/24 15:00 63 22 99/68 99 03/19/24 14:37 67 22 96/61 99 03/19/24 14:22 53 L 24 123/59 99 03/19/24 14:07 53 L 22 112/58 100 03/19/24 13:52 68 20 110/54 100 03/19/24 13:37 96.4 F L 85 18 107/76 100 03/19/24 10:46 65 16 107/55 99 03/19/24 10:24 97.8 F 78 16 141/62 98 Intake and Output 03/19/24 03/19/24 03/19/24 06:59 14:59 22:59 Intake Total 1201 280 Output Total 40 Balance 1161 280 Intake: IV 1201 100 Oral 180 Output: Estimated Blood Loss 40 Other: Weight 112.2 kg 112.2 kg Results 03/19/24 10:30 Cardiac Enzymes 03/19/24 Range/Units 10:30 AST 27 (14-36) U/L Coagulation 03/19/24 Range/Units 10:30 PT 17.8 H (10.0-12.5) sec APTT 27.8 (22.0-30.0) sec Comprehensive Metabolic Panel 03/19/24 Range/Units 10:30 Sodium 142 (137-145) mmol/L Potassium 4.3 (3.5-5.1) mmol/L Chloride 106 (98-107) mmol/L Carbon Dioxide 28 (22-30) mmol/L BUN 27 H (7-17) mg/dL Creatinine 1.04 (0.52-1.04) mg/dL Glucose 94 (74-99) mg/dL Calcium 9.6 (8.4-10.2) mg/dL AST 27 (14-36) U/L ALT 27 (4-34) U/L Alkaline Phosphatase 97 (38-126) U/L Total Protein 7.6 (6.3-8.2) g/dL Albumin 3.9 (3.5-5.0) g/dL Current Medications Generic Name Dose Route Start Last Admin Trade Name Freq PRN Reason Stop Dose Admin Acetaminophen 1,000 mg 03/19/24 05:00 Acetaminophen Tab 500 Mg Tab PO 03/20/24 00:01 ONCE PRN pre-op Hydrocodone Bitart/Acetaminophen 1 each 03/19/24 13:41 03/19/24 17:54 Hydrocodone/Apap 7.5-325mg 1 Each Tab PO 04/18/24 13:42 1 each Q6H PRN Administration Pain Scale 1 to 5 Hydrocodone Bitart/Acetaminophen 2 each 03/19/24 13:41 Hydrocodone/Apap 7.5-325mg 1 Each Tab PO 04/18/24 13:42 Q6H PRN Pain Scale 6 to 10 Ropivacaine 1,100 mg/ Sodium 0 mg 03/19/24 11:09 03/19/24 14:20 Chloride 330 ml/ Bandage/ MISCELLANE 04/18/24 11:10 1,100 mg Support Products 1 each Q2H PRN Administration Breakthrough Pain Gabapentin 300 mg 03/19/24 05:00 Gabapentin 300 Mg Cap PO 03/20/24 00:01 ONCE PRN Pre-Op Hydromorphone HCl 0.5 mg 03/19/24 07:00 03/19/24 14:15 Hydromorphone 0.5 Mg/0.5 Ml Syringe IVP 03/19/24 23:00 0.5 mg Q5M PRN Administration Phase 1 or 2 - Pain Control Hydromorphone HCl 0.125 mg 03/19/24 13:38 Hydromorphone 0.5 Mg/0.5 Ml Syringe IVP 04/18/24 13:39 Q3HR PRN Pain Scale 1 to 3 Hydromorphone HCl 0.5 mg 03/19/24 13:38 Hydromorphone 0.5 Mg/0.5 Ml Syringe IVP 04/18/24 13:39 Q3HR PRN Pain Scale 7 to 10 Hydromorphone HCl 0.25 mg 03/19/24 13:38 Hydromorphone 0.5 Mg/0.5 Ml Syringe IVP 04/18/24 13:39 Q3HR PRN Pain Scale 4 to 6 Lactated Ringer's 1,000 mls @ 20 mls/hr 03/19/24 06:00 03/19/24 10:35 Lactated Ringers IV 04/18/24 06:01 700 mls .Q24H GHASSAN Administration Tranexamic Acid/Sodium 100 mls @ 200 mls/hr 03/19/24 11:14 Chloride 1,000 mg/ IV Solution IVPB 03/19/24 23:00 Q2HR PRN Bleeding Protocol Sodium Chloride 1,000 mls @ 70 mls/hr 03/19/24 13:45 03/19/24 16:17 Saline 0.9% IV 04/18/24 13:46 70 mls/hr .[id number] GHASSAN Administration Vancomycin HCl 1,750 mg/ 500 mls @ 333.333 mls/hr 03/20/24 00:00 Sodium Chloride IVPB 03/20/24 01:29 ONCE ONE Meloxicam 15 mg 03/19/24 05:00 Meloxicam 7.5 Mg Tab PO 03/20/24 00:01 ONCE PRN Pre-Op Miscellaneous Information 1 each 03/19/24 13:38 Warfarin Per Pharmacy MISCELLANE 04/18/24 13:39 DIRECTED PRN anticoagulation Naloxone HCl 0.2 mg 03/19/24 13:38 Naloxone 0.4 Mg/Ml 1 Ml Vial IV 04/18/24 13:39 Q2M PRN Opioid Reversal Ondansetron HCl 4 mg 03/19/24 13:38 Ondansetron 4 Mg/2 Ml Vial IVP 04/18/24 13:39 Q8HR PRN Nausea And Vomiting Warfarin Sodium 5 mg 03/19/24 18:00 03/19/24 17:54 Warfarin 5 Mg Tab PO 04/18/24 18:01 5 mg DAILY@1800 GHASSAN Administration Intake and Output 03/19/24 03/19/24 03/19/24 06:59 14:59 22:59 Intake Total 1201 280 Output Total 40 Balance 1161 280 Intake: IV 1201 100 Oral 180 Output: Estimated Blood Loss 40 Other: Weight 112.2 kg 112.2 kg Patient Weight 03/20/24 06:59 Weight 112.2 kg 03/19/24 10:30
[2024-03-19] MEDS: NON FORMULARY DRUG (Metoprolol Tartrate [Lopressor] 100 MG Tablet) PO SCH (22:52)
[2024-03-19] MEDS: METOPROLOL TARTRATE 50 MG TAB PO SCH (22:57)
[2024-03-19] MEDS: VANCOMYCIN 1,750 MG in SODIUM CHLORIDE 0.9% 500 ML 500 ML IVPB ONE (23:03)
--- NOTE | 2024-03-20 00:22 | P.CONS ---
History of Present Illness - Reason for Consult Consult date: 03/19/24 - History of Present Illness Patient is a 73-year-old female with a PMH of A-fib on Coumadin, hypertension, hyperlipidemia who was admitted for an elective left total knee replacement. The patient underwent the procedure earlier today and was seen postoperatively on the surgical unit. She reported excellent control of her pain at the time of interview, rated at a 0 out of 10. She denied experiencing chest discomfort, shortness of breath, fever, chills, cough, sore throat, nausea, vomiting, abdominal pain. She has not gotten out of bed as of yet and has not passed flatus but has passed urine. Reports compliance with her medications at home. Review of systems: Pertinent positives and negatives as discussed in HPI, a complete review of systems was performed and all other systems are negative. Physical examination: Vital signs reviewed General: non toxic, no distress, appears at stated age, morbidly obese Derm: no unusual rashes/lesions, warm Head: atraumatic, normocephalic, symmetric Eyes: EOMI, no lid lag, anicteric sclera, pupils equal round reactive to light ENT: Nose and ears atraumatic Neck: No cervical lymphadenopathy, trachea midline, supple Mouth: no lip lesion, mucus membranes moist Cardiovascular: S1S2 reg, no murmur, positive dorsalis pedis pulse bilateral, no edema Lungs: CTA bilateral, no rhonchi, no rales, no accessory muscle use Abdominal: soft, nontender to palpation, no guarding Ext: muscle strength 5 out of 5 in all extremities grossly except left lower extremity postsurgically, left knee Moe bandage and dressings in place clean and dry, no gross muscle atrophy, no contractures, Neuro: CN II-XI grossly intact, no gross focal neuro deficits Psych: Alert, oriented, appropriate affect Assessment: Chronic conditions: A-fib, hypertension, hyperlipidemia Status post left total knee replacement Data Review: Laboratory evaluation was reviewed with INR 1.8, sodium 142, potassium 4.3, BUN 27, creatinine 1.04 Plan: Resume home medications including Lipitor, digoxin, diltiazem, enalapril, Lopre ssor, hydrochlorothiazide Defer the resumption of home Coumadin and pain control to primary surgery service We appreciate this opportunity to be involved in this patient's care. We will follow the patient with you. For any further questions, please not hesitate to contact the [facility] inpatient team. Past Medical History Past Medical History: Atrial Fibrillation, Coronary Artery Disease (CAD), COPD, GERD/Reflux, Hyperlipidemia, Hypertension, Myocardial Infarction ([place]), Osteoarthritis (OA) Additional Past Medical History / Comment(s): Hx gastric ulcers in past. "Kidneys not functioning at 100%." Vertigo occasionally related to inner ear, psoriasis. Last Myocardial Infarction Date:: 1998 History of Any Multi-Drug Resistant Organisms: None Reported Past Surgical History: Heart Catheterization With Stent Additional Past Surgical History / Comment(s): Bilateral cataracts removed. D & C, recent GONZALEZ Past Anesthesia/Blood Transfusion Reactions: No Reported Reaction Additional Past Anesthesia/Blood Transfusion Reaction / Comm: Vertigo@times Date of Last Stent Placement:: 1998 Past Psychological History: Anxiety Smoking Status: Former smoker Past Alcohol Use History: None Reported Additional Past Alcohol Use History / Comment(s): Quit smoking in 2013, smoked for 41 yrs. Past Drug Use History: None Reported - Past Family History Brother(s) Family Medical History: Cancer Father Family Medical History: Cancer Sister(s) Family Medical History: Cancer Medications and Allergies Home Medications Medication Instructions Recorded Confirmed Type Cyanocobalamin [Vitamin B-12] 1,000 mcg PO HS 09/11/15 03/18/24 History Digoxin [Lanoxin] 125 mcg PO QAM 09/11/15 03/18/24 History Enalapril [Vasotec] 10 mg PO QAM 09/11/15 03/18/24 History Metoprolol Tartrate [Lopressor] 100 mg PO BID 11/11/16 03/18/24 History hydroCHLOROthiazide 25 mg PO QAM 11/11/16 03/18/24 History Atorvastatin [Lipitor] 20 mg PO HS 03/04/22 03/18/24 History Ascorbic Acid [Vitamin C] 1,000 mg PO DAILY 03/18/22 03/18/24 History Cholecalciferol [Vitamin D3 (25 25 mcg PO DAILY 12/19/22 03/18/24 History Mcg = 1000 Iu)] Diltiazem Cd [Cardizem CD] 120 mg PO QAM 12/19/22 03/18/24 History Warfarin [Coumadin] 5 mg PO DAILY 12/19/22 03/18/24 History HYDROcodone/APAP 7.5-325MG [[place] 1 - 2 tab PO Q6H PRN #32 tab 03/19/24 Rx 7.5-325] Pantoprazole Sodium 40 mg PO BID 03/19/24 03/19/24 History Sennosides [Senokot] 2 tab PO DAILY PRN #60 tablet 03/19/24 Rx Allergies Allergy/AdvReac Type Severity Reaction Status Date / Time latex Allergy Itchy,rash Verified 03/19/24 10:17 shellfish derived [Shellfish] Allergy Anaphylaxis Verified 03/19/24 10:17 Physical Exam Vitals: Vital Signs Temp Pulse Resp BP Pulse Ox 03/19/24 20:00 97.7 F 58 L 16 119/64 97 03/19/24 15:46 98.5 F 66 16 125/77 97 03/19/24 15:28 63 22 100/58 99 03/19/24 15:00 63 22 99/68 99 03/19/24 14:37 67 22 96/61 99 03/19/24 14:22 53 L 24 123/59 99 03/19/24 14:07 53 L 22 112/58 100 03/19/24 13:52 68 20 110/54 100 03/19/24 13:37 96.4 F L 85 18 107/76 100 03/19/24 10:46 65 16 107/55 99 03/19/24 10:24 97.8 F 78 16 141/62 98 Intake and Output 03/19/24 03/19/24 03/19/24 06:59 14:59 22:59 Intake Total 1201 280 Output Total 40 Balance 1161 280 Intake: IV 1201 100 Oral 180 Output: Estimated Blood Loss 40 Other: Weight 112.2 kg 112.2 kg Results CBC & Chem 7: 03/19/24 10:30 Labs: Abnormal Lab Results - Last 24 Hours (Table) 03/19/24 03/19/24 Range/Units 10:30 10:30 PT 17.8 H (10.0-12.5) sec INR 1.8 H (<1.2) BUN 27 H (7-17) mg/dL
--- NOTE | 2024-03-20 07:01 | P.PN ---
Progress Note - Text Adequate analgesia. No complication from nerve block.
[2024-03-20] MEDS: DIGOXIN 125 MCG TAB PO SCH (08:45)
[2024-03-20] MEDS: DILTIAZEM CD 120 MG CAP.ER.24H PO SCH (08:46)
[2024-03-20] MEDS: PANTOPRAZOLE 40 MG TABLET PO SCH (08:46)
[2024-03-20] MEDS ORDERED: DILTIAZEM CD 120 MG CAP.ER.24H PO SCH (09:00)
[2024-03-20] MEDS ORDERED: lisinopriL 10 MG TAB PO SCH (09:00)
[2024-03-20] MEDS ORDERED: hydroCHLOROthiazide 25 MG TAB PO SCH (09:00)
--- NOTE | 2024-03-20 09:53 | P.DS ---
Providers Date of admission: 03/19/24 13:41 Expected date of discharge: 03/20/24 Attending physician: Óscar Liao Consults: 03/19/24 13:38 Consult Physician Routine Consulting Provider: Radha Bonilla Consult Reason/Comments: medical management and anticoagulation post Total knee Do you want consulting provider notified?: Yes 03/19/24 13:42 Consult Physician Routine Consulting Provider: Adelfo Cobos Consult Reason/Comments: Runs of vtach in [place] Do you want consulting provider notified?: Yes Primary care physician: Óscar Franks - Discharge Diagnosis(es) (1) S/P total knee arthroplasty Current Visit: Yes Status: Acute (2) Osteoarthritis of left knee Current Visit: Yes Status: Acute Hospital Course: This is a 73-year-old female with known history of degenerative arthritis of the left knee. The patient presented for evaluation as an outpatient. After discussion and consideration patient elects to proceed with total knee arthroplasty. The patient is seen preoperatively by Dr. Liao and medically cleared for surgery by their primary care physician and cardiology. Patient is admitted to [facility] on 03/19/2024 for total knee arthroplasty. The procedure is performed without complication or sequelae. Patient was evaluated by cardiology during this admission due to nonsustained V. tach during induction of anesthesia. Patient has a known history of atrial fibrillation which she takes Coumadin for. The patient is doing well postoperatively. Labs and vital signs are stable on day of discharge On day of discharge patient's knee incision is healing well. There is minimal erythema. There is no drainage noted at this time. There is minimal soft tissue swelling to the knee. Patient has full foot and ankle motion without difficulty or pain. Calf is soft and nontender to palpation. Neurovascular status to the left lower extremity is intact. Patient is discharged home in good condition. Please see med rec for accurate list of home medications. Plan - Discharge Summary Discharge Rx Participant: No New Discharge Prescriptions: New HYDROcodone/APAP 7.5-325MG [[place] 7.5-325] 1 - 2 tab PO Q6H PRN #32 tab PRN Reason: Pain Sennosides [Senokot] 2 tab PO DAILY PRN #60 tablet PRN Reason: Constipation No Action Cyanocobalamin [Vitamin B-12] 1,000 mcg PO HS Enalapril [Vasotec] 10 mg PO QAM Digoxin [Lanoxin] 125 mcg PO QAM Metoprolol Tartrate [Lopressor] 100 mg PO BID hydroCHLOROthiazide 25 mg PO QAM Cholecalciferol [Vitamin D3 (25 Mcg = 1000 Iu)] 25 mcg PO DAILY Warfarin [Coumadin] 5 mg PO DAILY Atorvastatin [Lipitor] 20 mg PO HS Ascorbic Acid [Vitamin C] 1,000 mg PO DAILY Diltiazem Cd [Cardizem CD] 120 mg PO QAM Pantoprazole Sodium 40 mg PO BID Discharge Medication List Cyanocobalamin [Vitamin B-12] 1,000 mcg PO HS 09/11/15 [History] Digoxin [Lanoxin] 125 mcg PO QAM 09/11/15 [History] Enalapril [Vasotec] 10 mg PO QAM 09/11/15 [History] Metoprolol Tartrate [Lopressor] 100 mg PO BID 11/11/16 [History] hydroCHLOROthiazide 25 mg PO QAM 11/11/16 [History] Atorvastatin [Lipitor] 20 mg PO HS 03/04/22 [History] Ascorbic Acid [Vitamin C] 1,000 mg PO DAILY 03/18/22 [History] Cholecalciferol [Vitamin D3 (25 Mcg = 1000 Iu)] 25 mcg PO DAILY 12/19/22 [History] Diltiazem Cd [Cardizem CD] 120 mg PO QAM 12/19/22 [History] Warfarin [Coumadin] 5 mg PO DAILY 12/19/22 [History] Pantoprazole Sodium 40 mg PO BID 03/19/24 [History] HYDROcodone/APAP 7.5-325MG [[place] 7.5-325] 1 - 2 tab PO Q6H PRN #32 tab 03/20/24 [Rx] Sennosides [Senokot] 2 tab PO DAILY PRN #60 tablet 03/20/24 [Rx] Follow up Appointment(s)/Referral(s): Óscar Liao DO [Doctor of Osteopathic Medicine] - 2 Weeks Activity/Diet/Wound Care/Special Instructions: Weightbearing as tolerated with a walker. CPM 5-6h daily as tolerated. Leave dressing intact. Dressing may be removed by home care nurse or by patient in 7 days. Then change dressing twice daily until follow up. May shower with initial dressing intact and after removal. If dressing become saturated, please remove. Recommend use of compression stockings daily until follow up to help prevent swelling and blood clots. May remove at night before sleeping. Please resume Coumadin. Please follow up with [facility] and call with any questions or concerns, . Discharge Disposition: HOME WITH HOME HEALTH SERVICES
--- NOTE | 2024-03-20 10:20 | P.PN ---
Subjective Progress Note Date: 03/20/24 Patient is a 73-year-old female with a PMH of A-fib on Coumadin, history of TAVR 2021, hypertension, hyperlipidemia who was admitted for an elective left total knee replacement. The patient underwent the procedure earlier today and was seen postoperatively on the surgical unit. Post operatively she was noted to have a run of 12 beat NSVT. Cardiology consulted, restart Metoprolol (lower dose) and Cardizem, add back Digoxin tomorrow if not bradycardic, restart Warfarin when OK with surgery, hold HCTZ and Enalapril. 03/20 Patient was seen and examined. Feeling well. No complaints. BP 95/64 HR 90. Urinating freely. Passing gas. CBC is pending this morning. General: non toxic, no distress, appears at stated age Derm: warm, dry Head: atraumatic, normocephalic, symmetric Eyes: EOMI, no lid lag, anicteric sclera Mouth: no lip lesion, mucus membranes moist Cardiovascular: S1S2 irreg, no murmur Lungs: CTA bilateral, no rhonchi, no rales , no accessory muscle use Ext: no gross muscle atrophy, no edema, no contractures Neuro: no focal neuro deficits Psych: Alert, oriented, appropriate affect NSVT: K and Mag within normal limits. Echo 06/03 EF 55-60% with moderate posterior wall thickness, bioprosthetic AV. Metoprolol 50 mg PO BID (lowered dose). Cardizem 120 mg PO QD. Telemetry monitoring. Cardiology on board. Atrial fibrillation: INR 1.8. Metoprolol, Cardizem, as above. Digoxin 125 mcg PO QAM. Warfarin re-started last night by [facility]. Hypertension: Now hypotensive. HCTZ and Lisinopril on hold this morning. Dyslipidemia: Lipitor 20 mg PO QD. Status post left total knee replacement: Management per Orthopedic surgery. PT and OT consulted. Discharge planning based on Cardiology clearance. CODE STATUS: FULL CODE DVT Prophylaxis: Warfarin. GI Prophylaxis: Protonix Designated medical POA if patient is not able to make medical decisions for themselves: I have reviewed the following virtualization consultant notes: Cardiology. I have reviewed the results of the following tests: Echo 06/03. I have ordered the following tests: CBC pending this morning. I have discussed the care of this patient with the following independent historian: I have independently interpreted the following test below: I have discussed the management of this patient with the following physician: Objective - Vital Signs Vital signs: Vital Signs Temp 98.3 F 03/20/24 03:46 Pulse 90 03/20/24 03:46 Resp 16 03/20/24 03:46 BP 95/64 03/20/24 03:46 Pulse Ox 96 03/20/24 03:46 FiO2 Intake & Output 03/19/24 03/19/24 03/20/24 06:59 18:59 06:59 Intake Total 1481 1205 Output Total 40 1050 Balance 1441 155 Weight 112.2 kg Intake: IV 1301 Intake, IV Titration 725 Amount Sodium Chloride 0.9% 1, 225 000 ml @ 70 mls/hr IV . [id number] [facility] Rx#:[id number] Vancomycin 1,750 mg In 500 Sodium Chloride 0.9% 500 ml 500 ml @ 333.333 mls/ hr IVPB ONCE ONE Rx#: [id number] Oral 180 480 Output: Urine 1050 Estimated Blood Loss 40 Other: # Voids 2 - Labs CBC & Chem 7: 03/19/24 10:30 Labs: Abnormal Lab Results - Last 24 Hours (Table) 03/19/24 03/19/24 Range/Units 10:30 10:30 PT 17.8 H (10.0-12.5) sec INR 1.8 H (<1.2) BUN 27 H (7-17) mg/dL
[2024-03-20 11:51] LABS: INR 1.7 (<1.2)
[2024-03-20 11:52] LABS: Basophils % (A) 0 %; Eosinophils % (A) 0 %; HGB 11.7 gm/dL (11.4-16.0); Lymphocytes # (A) 0.5 k/uL (1.0-4.8); Lymphocytes % (A) 4 %; MCH 36.5 pg (25.0-35.0); MCHC 33.4 g/dL (31.0-37.0); MCV 109.2 fL (80.0-100.0); Macrocytosis Marked; Mean Platelet Volume 9.7; Monocytes # (A) 0.8 k/uL (0-1.0); Monocytes % (A) 5 %; Neutrophils # (A) 13.5 k/uL (1.3-7.7); Neutrophils % (A) 90 %; Platelet Count 170 k/uL (150-450); RBC 3.21 m/uL (3.80-5.40)
[2024-03-20 12:10] VITALS: RESP 16
--- NOTE | 2024-03-20 15:32 | P.PN ---
Subjective Progress Note Date: 03/20/24 HISTORY OF PRESENTING ILLNESS This is a pleasant 77-year-old with past medical history significant of aortic stenosis, s/p TAVR in 2021, HTN, HLD, chronic Afib on anticoagulation, CAD with prior PCI in 1999 and only mild in stent stenosis by [facility] 2021, previous tobacco abuse who presented for elective knee surgery. Patient stated she has been feeling fairly well recently however has been inhibited by knee pain. She underwent left total knee arthroplasty today and with induction of anesthesia had a short run (no strips) however reported approximately 12 beat run of VT. Additionally she had intermittent episodes of Afib with RVR and HR's into the 100's and ectopy with increased PVC's. She was given push of Cardizem during the surgery. She did not have any other hemodynamic or respiratory issues during the procedure. She states she feels well other than a little knee pain. No chest pain or pressure. No SOB. EKG shows Afib with with left axis, minimal ST depressions with minimal ST depre ssions in the inferior and laterals leads. 03/20 Yesterday, patient was restarted on lower dose of Lopressor 50 mg twice daily and Cardizem 120 mg daily. She had episodes of tacky cardia with a Bobby C several times during the night last this morning. Patient denies feeling any palpitations, lightheadedness or dizziness. Blood pressure this morning 111/72, heart rate 87, pulse ox 97% on room air. Patient is scheduled for discharge home today per orthopedics PHYSICAL EXAMINATION Vital signs reviewed. CONSTITUTIONAL: No apparent distress. HEENT: Head is normocephalic. Pupils are equal, round. Sclerae anicteric. Mucous membranes of the mouth are moist. No JVD. No carotid bruit. CHEST EXAMINATION: Lungs are clear to auscultation. No chest wall tenderness is noted on palpation or with deep breathing. HEART EXAMINATION: Regular rate and rhythm. S1, S2 heard. No murmurs, gallops or rub. ABDOMEN: Soft, nontender. Positive bowel sounds. EXTREMITIES: 2+ peripheral pulses, no lower extremity edema and no calf tenderness. NEUROLOGIC EXAMINATION: Patient is awake, alert and oriented x3. ASSESSMENT Nonsustained VT during induction of anesthesia, no strip on file, asymptomatic and 12 beat per report Most likely this is a rate dependent aberrancy versus V. tach Chronic Afib with mild RVR during surgery, improved S/p left knee total arthroplasty 03/19 HTN HLD Severe , S/p TAVR 2021 CAD with prior remote PCI, only mild disease by [facility] 2021 PLAN Patient is cleared for discharge from cardiology Patient to continue the lower dose Lopressor 50 bid and continue on Cardizem 120mg daily Patient has been resumed on warfarin Discontinue hydrochlorothiazide as patient has been hypotensive Patient may continue Vasotec with parameters to hold if blood pressure less than 115 Nurse practitioner note has been reviewed, I agree with documented findings and plan of care. Patient was seen and examined. Objective - Vital Signs Vital signs: Vital Signs Temp 98.3 F 03/20/24 08:00 Pulse 87 03/20/24 11:57 Resp 16 03/20/24 11:57 BP 111/72 03/20/24 11:57 Pulse Ox 97 03/20/24 11:57 FiO2 Intake & Output 03/19/24 03/20/24 03/20/24 18:59 06:59 18:59 Intake Total 1481 1205 600 Output Total 40 1050 1300 Balance 1441 155 -700 Weight 112.2 kg Intake: IV 1301 Intake, IV Titration 725 Amount Sodium Chloride 0.9% 1, 225 000 ml @ 70 mls/hr IV . [id number] [facility] Rx#:[id number] Vancomycin 1,750 mg In 500 Sodium Chloride 0.9% 500 ml 500 ml @ 333.333 mls/ hr IVPB ONCE ONE Rx#: [id number] Oral 180 480 600 Output: Urine 1050 1300 Estimated Blood Loss 40 Other: Voiding Method Toilet External Catheter # Voids 2 # Bowel Movements 1 - Labs CBC & Chem 7: 03/20/24 10:02 03/19/24 10:30 Labs: Abnormal Lab Results - Last 24 Hours (Table) 03/20/24 03/20/24 Range/Units 10:02 10:02 WBC 15.0 H (3.8-10.6) k/uL RBC 3.21 L (3.80-5.40) m/uL MCV 109.2 H (80.0-100.0) fL MCH 36.5 H (25.0-35.0) pg Macrocytosis Marked A PT 17.0 H (10.0-12.5) sec INR 1.7 H (<1.2)
[2024-03-20 16:00] VITALS: BP 117/81; PULSE 72; TEMP 97.9
[2024-03-20] MEDS ORDERED: ATORVASTATIN 20 MG TAB PO SCH (21:00)
== END 2024-03-20 15:55 | disposition home health service (06) | DRG 470 ==
LOC: OR 10:04 → 3SCARD 13:31 → OR 13:41
PROVIDERS: ADMIT Orthopaedic Surgery; ATTEND Orthopaedic Surgery
PROC: 0SRD0J9 Replacement of Left Knee Joint with Synthetic Substitute, Cemented, Open Approach (ICD-10-PCS; principal; 2024-03-19 11:15)
DX: M17.12 Unilateral primary osteoarthritis, left knee (principal); I47.20 Ventricular tachycardia, unspecified; I48.20 Chronic atrial fibrillation, unspecified; E78.5 Hyperlipidemia, unspecified; I10 Essential (primary) hypertension; I25.10 Atherosclerotic heart disease of native coronary artery without angina pectoris; I35.0 Nonrheumatic aortic (valve) stenosis; J44.9 Chronic obstructive pulmonary disease, unspecified; I25.2 Old myocardial infarction; Z79.01 Long term (current) use of anticoagulants; Z79.899 Other long term (current) drug therapy; Z87.891 Personal history of nicotine dependence; Z95.2 Presence of prosthetic heart valve; Z98.61 Coronary angioplasty status
CPT/HCPCS: 64448; 64999; 80053; 83735; 85025; 85610; 85730

== ENCOUNTER 2024-03-21 16:49 | Observation (INO) | payer MEDICARE ==
--- NOTE | 2024-03-21 17:52 | ED ---
General Adult HPI - General Chief complaint: Weakness Stated complaint: weakness Time Seen by Provider: 03/21/24 17:45 Source: patient, RN notes reviewed Mode of arrival: EMS Limitations: no limitations - History of Present Illness Initial comments: 73-year-old female presenting with left knee pain status post knee replacement surgery 2 days ago. States she was discharged from the hospital yesterday and she lives alone and states she "cannot do it alone". States pain is well- managed with prescription medication she was given by her surgeon however she cannot remember the name of the medication. She is able to bear weight but states she is unable to get up from the toilet and perform activities of daily living. Denies fever or other symptoms at this time. Her next follow-up appointment is in 6 days. Her surgeon is Dr. Óscar Liao. - Related Data Home Medications Medication Instructions Recorded Confirmed Cyanocobalamin [Vitamin B-12] 1,000 mcg PO HS 09/11/15 03/18/24 Digoxin [Lanoxin] 125 mcg PO QAM 09/11/15 03/18/24 Atorvastatin [Lipitor] 20 mg PO HS 03/04/22 03/18/24 Ascorbic Acid [Vitamin C] 1,000 mg PO DAILY 03/18/22 03/18/24 Cholecalciferol [Vitamin D3 (25 25 mcg PO DAILY 12/19/22 03/18/24 Mcg = 1000 Iu)] Diltiazem Cd [Cardizem CD] 120 mg PO QAM 12/19/22 03/18/24 Warfarin [Coumadin] 5 mg PO DAILY 12/19/22 03/18/24 Previous Rx's Medication Instructions Recorded Enalapril [Vasotec] 10 mg PO QAM #0 03/20/24 HYDROcodone/APAP 7.5-325MG [[place] 1 - 2 tab PO Q6H PRN #32 tab 03/20/24 7.5-325] Metoprolol Tartrate [Lopressor] 50 mg PO BID tab 03/20/24 Sennosides [Senokot] 2 tab PO DAILY PRN #60 tablet 03/20/24 Allergies Allergy/AdvReac Type Severity Reaction Status Date / Time latex Allergy Itchy,rash Verified 03/19/24 10:17 shellfish derived [Shellfish] Allergy Anaphylaxis Verified 03/19/24 10:17 Review of Systems ROS Statement: Those systems with pertinent positive or pertinent negative responses have been documented in the HPI. ROS Other: All systems not noted in ROS Statement are negative. Past Medical History Past Medical History: Atrial Fibrillation, Coronary Artery Disease (CAD), COPD, GERD/Reflux, Hyperlipidemia, Hypertension, Myocardial Infarction ([place]), Osteoarthritis (OA) Additional Past Medical History / Comment(s): Hx gastric ulcers in past. "Kidneys not functioning at 100%." Vertigo occasionally related to inner ear, psoriasis. Last Myocardial Infarction Date:: 1998 History of Any Multi-Drug Resistant Organisms: None Reported Past Surgical History: Heart Catheterization With Stent, Orthopedic Surgery Additional Past Surgical History / Comment(s): Bilateral cataracts removed. D & C, recent GONZALEZ Left knee replacement 03/19/2024 Past Anesthesia/Blood Transfusion Reactions: No Reported Reaction Additional Past Anesthesia/Blood Transfusion Reaction / Comment(s): Vertigo@times Date of Last Stent Placement:: 1998 Past Psychological History: Anxiety Smoking Status: Former smoker Past Alcohol Use History: None Reported Past Drug Use History: None Reported - Past Family History Brother(s) Family Medical History: Cancer Father Family Medical History: Cancer Sister(s) Family Medical History: Cancer General Exam Limitations: no limitations General appearance: alert, in no apparent distress Respiratory exam: Present: normal lung sounds bilaterally. Absent: respiratory distress, wheezes, rales, rhonchi, stridor Cardiovascular Exam: Present: regular rate, normal rhythm, normal heart sounds. Absent: systolic murmur, diastolic murmur, rubs, gallop, clicks Left Upper Leg exam: Present: normal inspection, full ROM. Absent: tenderness, swelling Knee exam: Present: full ROM, tenderness (Mild diffuse tenderness along anterior knee.). Absent: normal inspection (Well-healing vertical incision clean dry and intact. No drainage or surrounding erythema.), swelling Lower Leg exam: Present: normal inspection, full ROM. Absent: tenderness, swelling Ankle exam: Present: normal inspection, full ROM. Absent: tenderness, swelling Neurovascular tendon exam: Present: no vascular compromise (Full sensation and dorsalis pedis pulses.) Course Vital Signs 03/21/24 03/21/24 16:53 19:09 Temperature 97.6 F 98.4 F Pulse Rate 81 80 Respiratory 18 18 Rate Blood Pressure 82/55 101/57 O2 Sat by Pulse 93 L 92 L Oximetry Medical Decision Making - Medical Decision Making Was pt. sent in by a medical professional or institution (, PA, BUNK HOUSE WORKER, urgent care, hospital, or intermediate...) When possible be specific @ -No Did you speak to anyone other than the patient for history (EMS, parent, family, police, friend...)? What history was obtained from this source @ -No Did you review nursing and triage notes (agree or disagree)? Why? @ -I reviewed and agree with nursing and triage notes Were old charts reviewed (outside hosp., previous admission, EMS record, old EKG, old radiological studies, urgent care reports/EKG's, intermediate records)? Report findings @ -No old charts were reviewed Differential Diagnosis (chest pain, altered mental status, abdominal pain women, abdominal pain men, vaginal bleeding, weakness, fever, dyspnea, syncope, headache, dizziness, GI bleed, back pain, seizure, CVA, palpatations, mental health, musculoskeletal)? @ -Differential Musculoskeletal Muscular strain, contusion, ligament sprain, fracture, arthritis, septic arthritis, bursitis, cellulitis, muscle spasm, nerve compression, DVT, arterial occlusion, herpes zoster, electrolyte abnormality, tumor.... This is not meant to be in all inclusive list EKG interpreted by me (3pts min.). @ -None X-rays interpreted by me (1pt min.). @ -None done CT interpreted by me (1pt min.). @ -None done U/S interpreted by me (1pt. min.). @ -None done What testing was considered but not performed or refused? (CT, X-rays, U/S, labs)? Why? @ -None What meds were considered but not given or refused? Why? @ -None Did you discuss the management of the patient with other professionals (professionals i.e. , PA, BUNK HOUSE WORKER, lab, RT, psych nurse, delinquency prevention social worker, cytopathologist, teacher, security flex utility officer, special education case manager)? Give summary @ -Discussed case with Dr. Taylor from [facility] who accepted admi ssion. Was smoking cessation discussed for >3mins.? @ -No Was critical care preformed (if so, how long)? @ -No Were there social determinants of health that impacted care today? How? (Homelessness, low income, unemployed, alcoholism, drug addiction, transportation, low edu. Level, literacy, decrease access to med. care, retirement, rehab)? @ -No Was there de-escalation of care discussed even if they declined (Discuss DNR or withdrawal of care, Hospice)? DNR status @ -No What co-morbidities impacted this encounter? (DM, HTN, Smoking, COPD, CAD, Cancer, CVA, ARF, Chemo, Hep., AIDS, mental health diagnosis, sleep apnea, morbid obesity)? @ -None Was patient admitted / discharged? Hospital course, mention meds given and route, prescriptions, significant lab abnormalities, going to OR and other pertinent info. @ -Patient was admitted. Patient was seen and evaluated for failure to thrive status post left knee replacement surgery 2 days ago. Pain is well-controlled but patient states she lives alone and cannot take care of herself since the surgery. No sign of bacterial infection, no other specific complaints. Vitals and physical examination is unremarkable. Incision is clean dry intact and appears to be well healing. Case discussed with Dr. Taylor from [facility] who accepted admission at this time. Case discussed with Dr. Enrique. Undiagnosed new problem with uncertain prognosis? @ -No Drug Therapy requiring intensive monitoring for toxicity (Heparin, Nitro, Insulin, Cardizem)? @ -No Were any procedures done? @ -No Diagnosis/symptom? @ -Failure to thrive status post left knee replacement surgery Acute, or Chronic, or Acute on Chronic? @ -Acute Uncomplicated (without systemic symptoms) or Complicated (systemic symptoms)? @ -Uncomplicated Side effects of treatment? @ -No Exacerbation, Progression, or Severe Exacerbation? @ -No Poses a threat to life or bodily function? How? (Chest pain, [place], [place], pneumonia, PE, COPD, DKA, ARF, appy, cholecystitis, CVA, Diverticulitis, Homicidal, Suicidal, threat to staff... and all critical care pts) @ -No Disposition Clinical Impression: Aftercare following knee joint replacement surgery Disposition: ADMITTED IP TO THIS [facility] Condition: Stable Referrals: Óscar Franks DO [Primary Care Provider] - 1-2 days Time of Disposition: 19:26
[2024-03-21] MEDS ORDERED: NALOXONE 0.4 MG/ML 1 ML VIAL IV PRN (19:16)
[2024-03-21 20:53] LABS: Basophils % (A) 0 %; Eosinophils # (A) 0.1 k/uL (0-0.7); Eosinophils % (A) 1 %; HCT 32.7 % (34.0-46.0); HGB 11.1 gm/dL (11.4-16.0); Lymphocytes # (A) 1.5 k/uL (1.0-4.8); Lymphocytes % (A) 15 %; MCH 37.2 pg (25.0-35.0); MCV 109.5 fL (80.0-100.0); Macrocytosis Marked; Mean Platelet Volume 9.5; Monocytes % (A) 10 %; Neutrophils # (A) 7.1 k/uL (1.3-7.7); Neutrophils % (A) 72 %; Platelet Count 154 k/uL (150-450); RBC 2.98 m/uL (3.80-5.40)
[2024-03-21 21:11] LABS: ALT 17 U/L (4-34); AST 21 U/L (14-36); African American GFR (CKD) 72 (>60 ml/min/1.73 sqM); Albumin 3.2 g/dL (3.5-5.0); Alkaline Phosphatase 70 U/L (38-126); Anion Gap 5 mmol/L; Blood Urea Nitrogen 25 mg/dL (7-17); Calcium 8.9 mg/dL (8.4-10.2); Carbon Dioxide 28 mmol/L (22-30); Chloride 106 mmol/L (98-107); Glucose 85 mg/dL (74-99); Non-African American GFR(CKD) 63 (>60 ml/min/1.73 sqM); Potassium 4.1 mmol/L (3.5-5.1); Sodium 139 mmol/L (137-145); Total Protein 6.3 g/dL (6.3-8.2)
[2024-03-21 21:33] LABS: Polychromasia Present
[2024-03-22] MEDS: METOPROLOL TARTRATE 50 MG TAB PO SCH (06:21)
[2024-03-22] MEDS: DILTIAZEM CD 120 MG CAP.ER.24H PO SCH (06:22)
[2024-03-22] MEDS: DIGOXIN 125 MCG TAB PO SCH (06:22)
[2024-03-22] MEDS ORDERED: ONDANSETRON 4 MG/2 ML VIAL IVP PRN (07:58)
[2024-03-22] MEDS ORDERED: HYDROcodone/APAP 7.5-325MG 1 EACH TAB PO PRN (07:58)
--- NOTE | 2024-03-22 08:21 | P.HPOR ---
History of Present Illness H&P Date: 03/22/24 Chief Complaint: Left knee pain. This is a 73-year-old female who is postop day #3 status post total left knee arthroplasty with Dr. Óscar Liao. The patient was discharged home yesterday with home care. She had a visit from the home care nurse who had her walk down the hallway. The patient ended up falling and was unable to get up. The nurse called for EMS to get her up right and the patient asked to be brought back to the hospital stating that she cannot manage on her own. The patient does live alone. She states that she feels very weak and is unable to ambulate without assistance. She is admitted from the emergency department. She denies any injury from the fall. Past Medical History Past Medical History: Atrial Fibrillation, Coronary Artery Disease (CAD), COPD, GERD/Reflux, Hyperlipidemia, Hypertension, Myocardial Infarction ([place]), Osteoarthritis ([place]) Additional Past Medical History / Comment(s): Hx gastric ulcers in past. "Kidneys not functioning at 100%." Vertigo occasionally related to inner ear, psoriasis. Last Myocardial Infarction Date:: 1998 History of Any Multi-Drug Resistant Organisms: None Reported Past Surgical History: Heart Catheterization With Stent, Orthopedic Surgery Additional Past Surgical History / Comment(s): Bilateral cataracts removed. D & C, recent GONZALEZ Left knee replacement 03/19/2024 Past Anesthesia/Blood Transfusion Reactions: No Reported Reaction Additional Past Anesthesia/Blood Transfusion Reaction / Comment(s): Vertigo@times Date of Last Stent Placement:: 1998 Past Psychological History: Anxiety Smoking Status: Former smoker Past Alcohol Use History: None Reported Past Drug Use History: None Reported - Past Family History Brother(s) Family Medical History: Cancer Father Family Medical History: Cancer Sister(s) Family Medical History: Cancer Medications and Allergies Home Medications Medication Instructions Recorded Confirmed Type Cyanocobalamin [Vitamin B-12] 1,000 mcg PO HS 09/11/15 03/21/24 History Digoxin [Lanoxin] 125 mcg PO DAILY 09/11/15 03/21/24 History Atorvastatin [Lipitor] 20 mg PO HS 03/04/22 03/21/24 History Ascorbic Acid [Vitamin C] 1,000 mg PO DAILY 03/18/22 03/21/24 History Cholecalciferol [Vitamin D3 (25 25 mcg PO DAILY 12/19/22 03/21/24 History Mcg = 1000 Iu)] Diltiazem Cd [Cardizem CD] 120 mg PO DAILY 12/19/22 03/21/24 History HYDROcodone/APAP 7.5-325MG [[place] 1 - 2 tab PO Q6H PRN #32 tab 03/20/24 03/21/24 Rx 7.5-325] Sennosides [Senokot] 2 tab PO DAILY PRN #60 tablet 03/20/24 03/21/24 Rx Enalapril [Vasotec] 10 mg PO DAILY 03/21/24 03/21/24 History Ferrous Sulfate [Feosol] 325 mg PO BID 03/21/24 03/21/24 History Metoprolol Tartrate [Lopressor] 50 mg PO BID 03/21/24 03/21/24 History Warfarin [Coumadin] 5 mg PO DAILY 03/21/24 03/21/24 History Allergies Allergy/AdvReac Type Severity Reaction Status Date / Time latex Allergy Itchy,rash Verified 03/21/24 20:50 shellfish derived [Shellfish] Allergy Anaphylaxis Verified 03/21/24 20:50 Physical Examination This is a pleasant 73-year-old female in no acute distress. She is alert and oriented x 3. Exam of the head neck revealed no deformities. She has full cervical spine motion without difficulty or pain. Exam of the upper extremities reveals no deformities. She has full shoulder, elbow, wrist and finger motion bilaterally. Neurovascular status to the upper extremities is intact. Exam of the lower extremities reveals dressing is clean, dry and intact on the left knee. There is minimal soft tissue swelling. There is no erythema or ecchymosis. She has difficulty with active straight leg raise. She has full foot and ankle motion without difficulty or pain. Neurovascular status to the lower extremities is intact. Results - Labs Labs: Abnormal Lab Results - Last 24 Hours (Table) 03/21/24 03/21/24 Range/Units 20:30 20:30 RBC 2.98 L (3.80-5.40) m/uL Hgb 11.1 L (11.4-16.0) gm/dL Hct 32.7 L (34.0-46.0) % MCV 109.5 H (80.0-100.0) fL MCH 37.2 H (25.0-35.0) pg Macrocytosis Marked A BUN 25 H (7-17) mg/dL Albumin 3.2 L (3.5-5.0) g/dL H & H 03/21/24 Range/Units 20:30 Hgb 11.1 L (11.4-16.0) gm/dL Hct 32.7 L (34.0-46.0) % Result Diagrams: 03/21/24 20:30 03/21/24 20:30 Assessment and Plan (1) Aftercare following knee joint replacement surgery Current Visit: Yes Status: Acute Code(s): Z47.1 - AFTERCARE FOLLOWING JOINT REPLACEMENT SURGERY; Z96.659 - PRESENCE OF UNSPECIFIED ARTIFICIAL KNEE JOINT SNOMED Code(s): 942302922 (2) Atrial fibrillation with rapid ventricular response Current Visit: No Status: Acute Code(s): I48.91 - UNSPECIFIED ATRIAL FIBRILLATION SNOMED Code(s): 396492050094551 (3) Osteoarthritis of left knee Current Visit: No Status: Acute Code(s): M17.12 - UNILATERAL PRIMARY OSTEOARTHRITIS, LEFT KNEE SNOMED Code(s): 682935237009852 (4) S/P total knee arthroplasty Current Visit: No Status: Acute Code(s): Z96.659 - PRESENCE OF UNSPECIFIED ARTIFICIAL KNEE JOINT SNOMED Code(s): 5113232147305 Plan: The clinical findings are discussed with the patient. She is readmitted to the hospital for possible placement. I will have PT and OT evaluate the patient. Will consult case management for discharge planning. Internal medicine has been consulted for medical management.
[2024-03-22 09:11] VITALS: RESP 18
[2024-03-22] MEDS: FERROUS SULFATE 325 MG TAB PO SCH (09:57)
[2024-03-22] MEDS: ASCORBIC ACID 500 MG TAB PO SCH (09:57)
[2024-03-22] MEDS: lisinopriL 20 MG TAB PO SCH (09:58)
[2024-03-22] MEDS: CHOLECALCIFEROL 25 MCG (1000 IU) TABLET PO SCH (10:02)
[2024-03-22] MEDS: LACTULOSE 20 GM/30 ML CUP PO ONE (12:20)
[2024-03-22 12:43] LABS: Appearance,Urine Clear (Clear); Bilirubin,Urine Negative (Negative); Blood,Urine Negative (Negative); Color,Urine Light Yellow; Glucose,Urine (UA) Negative (Negative); Ketones,Urine Negative (Negative); Leukocyte Esterase,Urine Negative (Negative); Nitrite,Urine Negative (Negative); PH, Urine 5.5 (5.0-8.0); Protein,Urine Trace (Negative); Specific Gravity,Urine 1.016 (1.001-1.035); Urobilinogen,Urine <2.0 mg/dL (<2.0)
--- NOTE | 2024-03-22 13:02 | P.DS ---
Providers Date of admission: 03/21/24 19:19 Expected date of discharge: 03/22/24 Attending physician: Jonny Taylor Consults: 03/22/24 07:58 Consult Physician Routine Consulting Provider: Radha Bonilla Consult Reason/Comments: Medical management Do you want consulting provider notified?: Yes Primary care physician: Óscar Franks - Discharge Diagnosis(es) (1) Osteoarthritis of left knee Patient was readmitted 03/21/24 after being discharged from having a Left TKA on 03/19/24. . She had fallen at home and required transport back to hospital via EMS. She is requiring ECF placement. [place]: Patient was admitted to the OR on 03/19/24 to undergo a left total knee arthroplasty. She had failed conservative measures as an outpatient and desired to proceed with elective surgery after given informed consent. She underwent the above procedure which he tolerated well without complication. Postoperative hospital course has remained without complication. On day of discharge she is afebrile, vital signs stable, labs within acceptable ranges, tolerating by mouth meds and diet, voiding without difficulty, positive flatus, denies abdominal pain or calf pain, pain is controlled on oral pain medication and has no new complaints. Wound is benign, neurovascular status is intact, calf is soft and nontender, abdomen soft and nontender. Review of systems is negative for n umbness, tingling, fever, chills, chest pain, shortness of breath, nausea, vomiting, dizziness, headaches, slurred speech or other. Current Visit: No Status: Acute Priority: Medium Procedures: Left TKA Patient Condition at Discharge: Good Plan - Discharge Summary Discharge Rx Participant: Yes New Discharge Prescriptions: New Sennosides-Docusate Sodium [Senokot-S] 1 tab PO BID #60 tablet HYDROcodone/APAP 7.5-325MG [[place] 7.5-325] 1 - 2 tab PO Q6HR PRN #32 tab PRN Reason: Pain No Action Cyanocobalamin [Vitamin B-12] 1,000 mcg PO HS Digoxin [Lanoxin] 125 mcg PO DAILY Cholecalciferol [Vitamin D3 (25 Mcg = 1000 Iu)] 25 mcg PO DAILY HYDROcodone/APAP 7.5-325MG [[place] 7.5-325] 1 - 2 tab PO Q6H PRN #32 tab PRN Reason: Pain Sennosides [Senokot] 2 tab PO DAILY PRN #60 tablet PRN Reason: Constipation Ferrous Sulfate [Feosol] 325 mg PO BID Metoprolol Tartrate [Lopressor] 50 mg PO BID Enalapril [Vasotec] 10 mg PO DAILY Atorvastatin [Lipitor] 20 mg PO HS Ascorbic Acid [Vitamin C] 1,000 mg PO DAILY Diltiazem Cd [Cardizem CD] 120 mg PO DAILY Warfarin [Coumadin] 5 mg PO DAILY Discharge Medication List Cyanocobalamin [Vitamin B-12] 1,000 mcg PO HS 09/11/15 [History] Digoxin [Lanoxin] 125 mcg PO DAILY 09/11/15 [History] Atorvastatin [Lipitor] 20 mg PO HS 03/04/22 [History] Ascorbic Acid [Vitamin C] 1,000 mg PO DAILY 03/18/22 [History] Cholecalciferol [Vitamin D3 (25 Mcg = 1000 Iu)] 25 mcg PO DAILY 12/19/22 [History] Diltiazem Cd [Cardizem CD] 120 mg PO DAILY 12/19/22 [History] HYDROcodone/APAP 7.5-325MG [[place] 7.5-325] 1 - 2 tab PO Q6H PRN #32 tab 03/20/24 [Rx] Sennosides [Senokot] 2 tab PO DAILY PRN #60 tablet 03/20/24 [Rx] Enalapril [Vasotec] 10 mg PO DAILY 03/21/24 [History] Ferrous Sulfate [Feosol] 325 mg PO BID 03/21/24 [History] Metoprolol Tartrate [Lopressor] 50 mg PO BID 03/21/24 [History] Warfarin [Coumadin] 5 mg PO DAILY 03/21/24 [History] HYDROcodone/APAP 7.5-325MG [[place] 7.5-325] 1 - 2 tab PO Q6HR PRN #32 tab 03/22/24 [Rx] Sennosides-Docusate Sodium [Senokot-S] 1 tab PO BID #60 tablet 03/22/24 [Rx] Follow up Appointment(s)/Referral(s): Óscar Liao DO [Family Provider] - 10 Days Óscar Franks DO [Primary Care Provider] - 1-2 days Activity/Diet/Wound Care/Special Instructions: Follow-up with Dr. Liao as previously scheduled. May bear weight as tolerated with walker. May remove dressing 7 days postop. Aspirin 325 mg 2 daily x 4 weeks.
--- NOTE | 2024-03-22 13:30 | P.CONS ---
History of Present Illness - Reason for Consult Consult date: 03/22/24 Medical Management Requesting physician: Jonny Taylor - History of Present Illness History of Presenting Illness: Patient is a very pleasant 73-year-old female with a past medical history of CAD status post stenting, chronic atrial fibrillation on anticoagulation with warfarin, hypertension, hyperlipidemia, gastric ulcer, and osteoarthritis. She is status post left total knee arthroplasty by Dr. Valles on 03/19/2024. Patient was discharged home with home care on 03/21/2024, but reports after going back home she was too weak to care for herself and was unable to even get off of the toilet secondary to her recent surgery and limited mobility, she reports her home care nurse attempted to help her but she just was not strong enough and her home care nurse called EMS for transfer back to the hospital. Patient reports she was hoping she was going to be able to go home and not to rehab but has realized she unfortunately will need to go to rehabilitation facility. She denies any falls or injuries after discharge and denies any other complaints other than feeling too weak and not strong enough to move independently. She underwent evaluation in the emergency department. Upon arrival patient was hypotensive with blood pressure 82/55, heart rate 81, respiratory rate 18, temp 97.6 F, and SpO2 of 93% on room air. Repeat blood pressure improved without intervention to 101/57 with heart rate of 80. Labs were completed and reviewed. CBC showing stable macrocytic anemia with hemoglobin of 11.1. BMP showing mild prerenal azotemia with BUN of 25. Liver profile unremarkable. Patient was admitted to orthopedic surgery team for placement in rehab. We were consulted for medical management throughout hospitalization. Patient seen and fully evaluated at bedside. She reports pain is controlled but states she is just too weak and not strong enough to independently care for herself. Patient expresses disappointment but also states understanding that she needs to go to rehab facility. Patient requesting [facility]. Patient denies having any fevers, chills, diaphoresis, headache, lightheadedness, dizziness, chest pain, palpitations, shortness of breath, abdominal pain, nausea, vomiting, or experiencing any numbness/tingling in her extremities. Patient does report urinating only small amounts at a time and frequently and states she is also constipated with last bowel movement being 03/18/2024. Review of systems: Pertinent positives and negatives as discussed in HPI, a complete review of systems was performed and all other systems are negative. Physical exam: Vital signs reviewed and stable. General: Nontoxic, no distress and appears stated age. Derm: Skin warm and dry, normal coloration for ethnicity. Head: Atraumatic, normocephalic and symmetric. Eyes: EOMs intact, no lid lag, and anicteric sclera Mouth: no lip lesions, mucus membranes moist Cardiovascular: Irregularly irregular, systolic murmur, positive posterior tibial pulses bilaterally, and cap refill < 2 seconds. Lungs: Respirations even, regular, and unlabored on room air. Lungs CTA bilaterally, no rhonchi, no rales, no wheezing, and no accessory muscle usage. Abdominal: soft, nontender to palpation, no guarding, no appreciable organomegaly Ext: No gross muscle atrophy, no edema, no contractures. Movement and sensation intact. Postoperative dressing/Moe wrap in place left knee. Neuro: Speech clear, face symmetrical and CN II-XII grossly intact with no noted focal neuro deficits Psych: Alert and oriented to person, place, time, and situation. Appropriate and pleasant affect. Assessment and Plan of Care: Acute urinary retention -Post void bladder scan was completed showing greater than 888 cc. Patient was straight cathed with 1200 cc of urinary output. -Patient denies history of urinary retention in the past.. Urinary retention likely secondary to constipation and immobility. -Orders placed for urinalysis and upon follow-up of results, urinalysis negative for blood, ketones, or infection. -Secondary to significant amount of postvoid retention we will insert David catheter for 72 hours while treating underlying constipation. -Recommend removal of David catheter in 72 hours and performing voiding challenge. Constipation Patient was given a one-time dose of lactulose 30 g and started on bowel regimen with Senokot 1 tablet twice daily, MiraLAX 17 g daily. CAD status post stenting Chronic atrial fibrillation Hypertension Hyperlipidemia -Patient to continue daily medication regimen with Coumadin 5 mg daily, digoxin 125 mcg daily, metoprolol 50 mg twice daily, Vasotec 10 mg daily, Cardizem 120 mg daily, and atorvastatin 20 mg nightly. History of gastric ulcer -Patient being started on Protonix 40 mg daily for GI prophylaxis. Status post recent left total knee arthroplasty on 03/19/2024 -Management per primary admitting orthopedic surgery team including pain management, weightbearing, wound/dressing management, and PT/OT. Data reviewed: As stated above in HPI. Vital signs reviewed and stable this morning. Blood pressure 103/64, heart rate 82, respiratory rate 18, temp 98.5 F, and SpO2 of 98% on 2 L. Thank you for allowing us to participate in the care of this pleasant patient. Do not hesitate to contact us with questions. Someone can be reached from the [facility] hospitalist group all hours of the day at [phone] or via [employer]. Patient was seen independently by Nurse Practitioner. This document was prepared using [employer] dictation software. Please allow for errors in research psychologist while rare they do occur. Lc Baron NP rendered care for this patient independently, reviewed the findings and plan as documented in the note above. I did not physically speak with or examine the patient on this date. Past Medical History Past Medical History: Atrial Fibrillation, Coronary Artery Disease (CAD), COPD, GERD/Reflux, Hyperlipidemia, Hypertension, Myocardial Infarction ([place]), Osteoarthritis (OA) Additional Past Medical History / Comment(s): Hx gastric ulcers in past. "Kidneys not functioning at 100%." Vertigo occasionally related to inner ear, psoriasis. Last Myocardial Infarction Date:: 1998 History of Any Multi-Drug Resistant Organisms: None Reported Past Surgical History: Heart Catheterization With Stent, Orthopedic Surgery Additional Past Surgical History / Comment(s): Bilateral cataracts removed. D & C, recent GONZALEZ Left knee replacement 03/19/2024 Past Anesthesia/Blood Transfusion Reactions: No Reported Reaction Additional Past Anesthesia/Blood Transfusion Reaction / Comm: Vertigo@times Date of Last Stent Placement:: 1998 Past Psychological History: Anxiety Smoking Status: Former smoker Past Alcohol Use History: None Reported Past Drug Use History: None Reported - Past Family History Brother(s) Family Medical History: Cancer Father Family Medical History: Cancer Sister(s) Family Medical History: Cancer Medications and Allergies Home Medications Medication Instructions Recorded Confirmed Type Cyanocobalamin [Vitamin B-12] 1,000 mcg PO HS 09/11/15 03/21/24 History Digoxin [Lanoxin] 125 mcg PO DAILY 09/11/15 03/21/24 History Atorvastatin [Lipitor] 20 mg PO HS 03/04/22 03/21/24 History Ascorbic Acid [Vitamin C] 1,000 mg PO DAILY 03/18/22 03/21/24 History Cholecalciferol [Vitamin D3 (25 25 mcg PO DAILY 12/19/22 03/21/24 History Mcg = 1000 Iu)] Diltiazem Cd [Cardizem CD] 120 mg PO DAILY 12/19/22 03/21/24 History HYDROcodone/APAP 7.5-325MG [[place] 1 - 2 tab PO Q6H PRN #32 tab 03/20/24 03/21/24 Rx 7.5-325] Sennosides [Senokot] 2 tab PO DAILY PRN #60 tablet 03/20/24 03/21/24 Rx Enalapril [Vasotec] 10 mg PO DAILY 03/21/24 03/21/24 History Ferrous Sulfate [Iron (65 MG 325 mg PO BID 03/21/24 03/21/24 History Elemental)] Metoprolol Tartrate [Lopressor] 50 mg PO BID 03/21/24 03/21/24 History Warfarin [Coumadin] 5 mg PO DAILY 03/21/24 03/21/24 History HYDROcodone/APAP 7.5-325MG [[place] 1 - 2 tab PO Q6HR PRN #32 tab 03/22/24 Rx 7.5-325] Pantoprazole [Protonix] 40 mg PO DAILY 30 Days #30 tab 03/22/24 Rx Sennosides-Docusate Sodium 1 tab PO BID #60 tablet 03/22/24 Rx [Senokot-S] polyethylene glycoL 3350 [Miralax] 17 gm PO DAILY 30 Days #30 packet 03/22/24 Rx Allergies Allergy/AdvReac Type Severity Reaction Status Date / Time latex Allergy Itchy,rash Verified 03/21/24 20:50 shellfish derived [Shellfish] Allergy Anaphylaxis Verified 03/21/24 20:50 Physical Exam Osteopathic Statement: *. No significant issues noted on an osteopathic structural exam other than those noted in the History and Physical/Consult. Vitals: Vital Signs Temp Pulse Resp BP Pulse Ox 03/22/24 07:42 98.2 F 87 16 102/59 96 03/22/24 06:00 102 H 16 99/51 92 L 03/22/24 03:00 92 20 91/51 98 03/22/24 00:00 93 16 94/71 95 03/21/24 22:00 100 16 110/70 95 03/21/24 21:00 97.8 F 106 H 16 95/58 97 03/21/24 19:09 98.4 F 80 18 101/57 92 L 03/21/24 16:53 97.6 F 81 18 82/55 93 L Intake and Output 03/21/24 03/22/24 03/22/24 22:59 06:59 14:59 Other: Weight 111.13 kg Results CBC & Chem 7: 03/21/24 20:30 03/21/24 20:30 Labs: Abnormal Lab Results - Last 24 Hours (Table) 03/21/24 03/21/24 Range/Units 20:30 20:30 RBC 2.98 L (3.80-5.40) m/uL Hgb 11.1 L (11.4-16.0) gm/dL Hct 32.7 L (34.0-46.0) % MCV 109.5 H (80.0-100.0) fL MCH 37.2 H (25.0-35.0) pg Macrocytosis Marked A BUN 25 H (7-17) mg/dL Albumin 3.2 L (3.5-5.0) g/dL
[2024-03-22 15:09] VITALS: BP 97/67; PULSE 87; TEMP 99
[2024-03-22] MEDS ORDERED: CYANOCOBALAMIN 500 MCG TAB PO SCH (21:00)
[2024-03-22] MEDS ORDERED: ATORVASTATIN 20 MG TAB PO SCH (21:00)
== END 2024-03-22 17:17 ==
LOC: EC 16:49 → 4SSUR 19:19
PROVIDERS: ADMIT Orthopaedic Surgery Sports Medicine; ATTEND Orthopaedic Surgery Sports Medicine
DX: R53.1 Weakness (principal); G89.18 Other acute postprocedural pain; Z96.652 Presence of left artificial knee joint; M17.12 Unilateral primary osteoarthritis, left knee; I48.91 Unspecified atrial fibrillation
CPT/HCPCS: 99285; 36415; 94760; 97162; 97166; 80053; 85025; 81003; G0378 ×2

== ENCOUNTER → 2024-08-22 | Outpatient (CLI) | payer MEDICARE ==
--- NOTE | 2024-08-26 09:30 | MM ---
Reason for Exam: Screening (asymptomatic). Last mammogram was performed 1 year(s) and 3 month(s) ago. Patient History: Menarche at age 14. Patient has no children. Postmenopausal. Cyst Aspiration on the Left side. Excisional Biopsy on the Right side. Risk Values: Rebecca 5 year model risk: 2.1%. NCI Lifetime model risk: 5.2%. Prior Study Comparison: 11/23/2009 Bilateral Screening Mammogram, [facility]. 01/30/2012 Bilateral Screening Mammogram, [facility]. 08/02/2012 Bilateral Diagnostic Mammogram, [facility]. Tissue Density: The breasts are almost entirely fatty. Findings: Analyzed By CAD. Right breast: There is no suspicious group of microcalcifications or new suspicious mass. Benign-appearing calcifications right breast. Left breast: There is no suspicious group of microcalcifications or new suspicious mass. Benign-appearing calcifications left breast. Overall Assessment: Benign, BI-RAD 2 Management: Screening Mammogram of both breasts in [address] [facility] will attempt to contact patient to return for supplemental views and ultrasound if indicated. Patient should continue monthly self-breast exams. A clinical breast exam by your physician is recommended on an annual basis. This exam should not preclude additional follow-up of suspicious palpable abnormalities. Note on Rebecca scores and lifetime risk: 1. A Rebecca score greater than 3% is considered moderate risk. If this is the case, consider specialist referral to assess eligibility for a risk reducing agent. 2. If overall lifetime risk for the development of breast cancer is 20% or higher, the patient may qualify for future screening with alternating mammogram and breast MRI. [facility], , 08/26/2024 9:27 AM. Electronically signed and approved by: Irving Bal DO
== END | disposition home or self-care (01) ==
LOC: RADMAMWWP 12:09
PROVIDERS: ATTEND Family Medicine
CPT/HCPCS: 77063; 77067

== ENCOUNTER → 2024-10-15 | Outpatient (CLI) | payer MEDICARE ==
--- NOTE | 2024-10-15 10:29 | CT ---
EXAMINATION TYPE: CT brain wo con CT DLP: 1150.5 mGycm, Automated exposure control for dose reduction was used. DATE OF EXAM: 10/15/2024 10:26 AM COMPARISON: None. CLINICAL INDICATION:Female, 74 years old with history of R42 DIZZINESS, dizziness and ringing in ears TECHNIQUE: Brain: Multiple axial CT images of the brain were obtained without IV contrast. . Coronal and sagitta l reformats reviewed. FINDINGS: Brain: Extra-axial spaces: No abnormal extra-axial fluid collections. Calcifications along the falx. Ventricular system: Within normal limits Cerebral parenchyma: Cerebral atrophy. No acute intraparenchymal hemorrhage or mass effect. The chase -white junction is well differentiated. Scattered confluent hypoattenuating areas are seen within the subcortical and periventricular white matter. Cerebellum: Unremarkable. Mass effect: No evidence of midline shift. Intracranial vasculature: Atherosclerotic calcifications of the intracranial vessels. Soft tissues: Normal. Calvarium/osseous structures: No depressed skull fracture. Paranasal sinuses and mastoid air cells: Minimal opacification the inferior bilateral mastoid air kayleen ls. Opacification within the posterior right ethmoid air cells. The remaining paranasal sinuses are c lear. Visualized orbits: Bilateral aphakia IMPRESSION: 1. No acute intracranial process. 2. Nonspecific white matter changes, likely secondary to chronic small vessel ischemic disease. [facility], , 10/15/2024 10:26 AM
== END | disposition home or self-care (01) ==
LOC: RADCTMAIN 09:33
PROVIDERS: ATTEND Family Medicine
DX: H93.13 Tinnitus, bilateral (principal); R42 Dizziness and giddiness; R51.9 Headache, unspecified
CPT/HCPCS: 70450